=== PATIENT | male | born 1975 | race Caucasian/White ===

== ENCOUNTER 2016-11-26 14:26 | Emergency (ER) | payer OTHER ==
[~2016-11-26] VITALS: Ht 177.8 cm; Wt 85.0 kg
[~2016-11-26 14:26] MED LIST: ADVAIR HFA120 INHALA IH; ALPRAZOLAM0.5 MG PO; ALPRAZOLAM1 MG PO; ALPRAZOLAM2 MG PO; AMBIEN5 MG PO; AMOXICILLIN875 MG PO; ATARAX,VISTARIL25 MG PO; ATARAX,VISTARIL50 MG PO; BENZONATATE100 MG PO; BLOOD THINNER; BUSPAR10 MG PO; BUSPAR15 MG PO; BUSPAR5 MG PO; CEFTIN500 MG PO; CLONAZEPAM0.5 MG PO; CLONAZEPAM1 MG PO; COUMADIN4 MG PO; COUMADIN5 MG PO; COUMADIN7.5 MG PO; DEPAKOTE500 MG PO; DIVALPROEX SOD500 M1 PO; DIVALPROEX SOD500 MG PO; DOXYCYCLINE HY100 MG PO; ELIQUIS5 MG PO; ENDOCET 5-3251 EACH PO; FLEXERIL10 MG PO; FLONASE16 G1 BOTH NARES; GABAPENTIN100 MG PO; GABAPENTIN400 MG PO; GEMFIBROZIL600 MG PO; GRALISE300 MG PO; HYDROXYZINE PAM25 MG PO; KEPPRA1000 MG PO; KEPPRA500 MG PO; LEVETIRACETAM500 MG PO; LEVOFLOXACIN500 MG PO; LIBRIUM25 MG PO; LIDODERM 5% P1 PATCH TD; LORTAB 5-325 M1 EACH PO; MEDROL DOSEPAK4 MG PO; MOBIC7.5 MG PO; MOTRIN400 MG PO; MOTRIN800 MG PO; MUCUS ER600 MG PO; NAPROSYN375 MG PO; NAPROSYN500 MG PO; NEURONTIN100 MG PO; NORCO 10/3251 TABLET PO; NORCO 5/3251 TABLET PO; OXCARBAZEPINE300 MG PO; PERCOCET 5/31 TABLET PO; PERCOCET 7.51 TABLET PO; PREDNISONE10 MG PO; PREDNISONE20 MG PO; PREDNISONE50 MG PO; PROAIR HFA8.5 GM IH; QUETIAPINE FUM100 MG PO; QUETIAPINE FUM200 MG PO; RISPERIDONE1 MG PO; ROXICET 5-325500 ML PO; SAPHRIS5 MG; SAPHRIS5 MG SL; SEROQUEL100 MG PO; SEROQUEL50 MG PO; SERTRALINE HCL100 MG PO; TESSALON200 MG PO; TRAMADOL HCL E100 M1 PO; TRAMADOL HCL50 MG PO; TRAZODONE HCL50 MG PO; TYLENOL WITH C1 EACH PO; ULTRAM50 MG PO; VALIUM5 MG PO; VENTOLIN HFA18 GM IH; WARFARIN SODIU7.5 MG PO; XANAX2 MG PO; XARELTO20 MG PO; ZITHROMAX Z-PA250 MG PO; ZOFRAN4 MG PO; ZOLOFT100 MG PO; ZOLOFT50 MG PO; ZOLPIDEM TARTRAT5 MG PO
[2016-11-26 16:02] LABS: HEMATOCRIT 44.3 % (38.0-50.0); MCH 32.9 PG (29.0-34.0); MCV 94.1 FL (86-99); MEAN PLAT.VOLUME 9.5 uM^3 (9.0-12.4); PLATELET COUNT 178 K/uL (156-360); RBC DIS.WIDTH-CV 13.7 % (11.8-14.6); RBC DIS.WIDTH-SD 45.2 % (39-53); RED BLOOD COUNT 4.71 M/uL (4.00-5.50); WHITE BLOOD COUNT 6.7 K/uL (4.1-10.2)
[2016-11-26 16:16] LABS: CHLORIDE 108 mEq/L (99-109); POTASSIUM 4.3 mEq/L (3.7-5.4); SODIUM 143 mEq/L (136-147)
[2016-11-26 16:18] LABS: GLUCOSE 101 mg/dL (70-99)
[2016-11-26 16:19] LABS: ANION GAP 11 MEQ/L (2-14)
[2016-11-26 16:21] LABS: SERUM ETHYL ALCOHOL < 10 mg/dL
[2016-11-26 16:22] LABS: GFR ESTIMATE (CALCULATED) > 59 mL/min/
[2016-11-26 16:23] LABS: UREA NITROGEN (BUN) 14 mg/dL (9-23)
[2016-11-26 16:25] LABS: CREATINE KINASE 728 IU/L (1-294)
[2016-11-26 17:14] LABS: ADD MIUA? NO; BILIRUBIN NEGATIVE; BLOOD NEGATIVE; COLOR YELLOW ((YELLOW)); GLUCOSE (STRIP) NEGATIVE; KETONES NEGATIVE; LEUKOCYTES NEGATIVE; NITRITE NEGATIVE; PH, URINE 5.5 (5-8); PROTEIN (STRIP) TRACE; SPECIFIC GRAVITY 1.029 (1.000-1.030); UCUL ADDED? NO; UROBILINOGEN 0.2 MG/DL (0.2-1.0)
[2016-11-26 19:18] VITALS: BP 124/73
[2016-12-18] MEDS ORDERED: PREDNISONE20 MG PO (04:14)
[2016-12-18] MEDS ORDERED: PROVENTIL HFA6.7 GM IH (04:14)
== END 2016-11-26 19:28 | disposition home or self-care (01) ==
LOC: EME → EDBD 14:26 → EME 19:28
PROVIDERS: Emergency Medicine
DX: Z04.6 Encounter for general psychiatric examination, requested by authority (principal); F41.1 Generalized anxiety disorder; M62.82 Rhabdomyolysis; R73.9 Hyperglycemia, unspecified; F31.32 Bipolar disorder, current episode depressed, moderate; F60.2 Antisocial personality disorder; F10.20 Alcohol dependence, uncomplicated; Z91.14 Patient's other noncompliance with medication regimen; F17.200 Nicotine dependence, unspecified, uncomplicated; I10 Essential (primary) hypertension; Z95.1 Presence of aortocoronary bypass graft; Z88.2 Allergy status to sulfonamides; Z88.6 Allergy status to analgesic agent
CPT/HCPCS: 80048; 80164; 81003; 82550; 85027; 90837; 99281; 99285; G0480

== ENCOUNTER 2016-11-27 04:51 | Emergency (ER) | payer OTHER ==
[~2016-11-27] VITALS: Ht 177.8 cm; Wt 90.2 kg
[2016-11-27 05:25] LABS: CHLORIDE 108 mEq/L (99-109); SODIUM 142 mEq/L (136-147)
[2016-11-27 05:27] LABS: GLUCOSE 122 mg/dL (70-99)
[2016-11-27 05:28] LABS: ANION GAP 12 MEQ/L (2-14)
[2016-11-27 05:29] LABS: EOSINOPHIL (%) 3.1 % (0-5); EOSINOPHIL COUNT 0.2 K/uL (0-0.3); HEMATOCRIT 43.3 % (38.0-50.0); IMMATURE GRANULOCYTE (%) 0.2 % (0.0-0.7); IMMATURE GRANULOCYTE COUNT 0.1 K/uL; LYMPHOCYTE COUNT 2.6 K/uL (1.0-2.8); MCH 33.5 PG (29.0-34.0); MCHC 35.8 G/DL (30.0-36.0); MCV 93.5 FL (86-99); MEAN PLAT.VOLUME 9.2 uM^3 (9.0-12.4); MONOCYTE (%) 8.5 % (3-12); MONOCYTE COUNT 0.6 K/uL (0-0.8); NEUTROPHIL (%) 47.9 % (45-76); NEUTROPHIL COUNT 3.1 K/uL (1.8-6.4); PLATELET COUNT 183 K/uL (156-360); RBC DIS.WIDTH-CV 13.7 % (11.8-14.6); RBC DIS.WIDTH-SD 45.4 % (39-53); RED BLOOD COUNT 4.63 M/uL (4.00-5.50); WHITE BLOOD COUNT 6.5 K/uL (4.1-10.2)
[2016-11-27 05:30] LABS: SERUM ETHYL ALCOHOL 139 mg/dL
[2016-11-27 05:31] LABS: GFR ESTIMATE (CALCULATED) > 59 mL/min/
[2016-11-27 05:33] LABS: UREA NITROGEN (BUN) 13 mg/dL (9-23)
[2016-11-27 05:34] LABS: SALICYLATE < 5.0 MG/DL (15-30)
[2016-11-27 05:35] LABS: POTASSIUM 3.4 mEq/L (3.7-5.4)
[2016-11-27 15:24] VITALS: BP 115/88
[2016-12-18] MEDS ORDERED: PREDNISONE20 MG PO (04:14)
[2016-12-18] MEDS ORDERED: PROVENTIL HFA6.7 GM IH (04:14)
[2016-12-21] MEDS ORDERED: XARELTO15 MG PO (06:58)
== END 2016-11-27 15:25 | disposition home or self-care (01) ==
LOC: EME → EDBD 04:51 → EME 15:25
PROVIDERS: Emergency Medicine
DX: F31.32 Bipolar disorder, current episode depressed, moderate (principal); F60.2 Antisocial personality disorder; J44.9 Chronic obstructive pulmonary disease, unspecified; I10 Essential (primary) hypertension; Z86.711 Personal history of pulmonary embolism; Z86.718 Personal history of other venous thrombosis and embolism; D68.2 Hereditary deficiency of other clotting factors; F17.200 Nicotine dependence, unspecified, uncomplicated; Z95.1 Presence of aortocoronary bypass graft
CPT/HCPCS: 80048; 81003; 85025; 90837; 93005; 99281; 99285; G0480; J2060

== ENCOUNTER 2016-11-27 19:28 | Emergency (ER) | payer OTHER ==
[~2016-11-27] VITALS: Ht 177.8 cm; Wt 90.2 kg
[2016-11-27 23:29] LABS: ADD MIUA? NO; BILIRUBIN NEGATIVE; BLOOD NEGATIVE; COLOR YELLOW ((YELLOW)); GLUCOSE (STRIP) NEGATIVE; KETONES NEGATIVE; LEUKOCYTES NEGATIVE; NITRITE NEGATIVE; PROTEIN (STRIP) NEGATIVE; SPECIFIC GRAVITY 1.022 (1.000-1.030); UCUL ADDED? NO; UROBILINOGEN 0.2 MG/DL (0.2-1.0)
[2016-11-27 23:54] LABS: AMPHETAMINE NEGATIVE (500 ng/mL); BARBITURATES NEGATIVE (200 ng/mL); BENZODIAZEPINES PRESUMPTIVE POSITIVE (150 ng/mL); COCAINE PRESUMPTIVE POSITIVE (150 ng/mL); INTERNAL CONTROLS VALID? YES; METHADONE PRESUMPTIVE POSITIVE (200 ng/mL); METHAMPHETAMINE NEGATIVE (500 ng/mL); OPIATES (MORPHINE) NEGATIVE (100 ng/mL); OXYCODONE NEGATIVE (100 ng/mL); PHENCYCLIDINE NEGATIVE (25 ng/mL); PROPOXYPHENE NEGATIVE (300 ng/mL); THC CANNABINOIDS NEGATIVE (50 ng/mL); TRICYCLIC ANTIDEPRESSANTS NEGATIVE (300 ng/mL)
[2016-11-27 23:55] LABS: ADD MEDTOX COMMENT Y
[2016-11-28 02:26] LABS: BENZODIAZEPINES, URINE SCREEN POSITIVE (200 ng/mL)
[2016-11-28 11:07] VITALS: BP 124/70
[2016-12-18] MEDS ORDERED: PROVENTIL HFA6.7 GM IH (04:14)
[2016-12-18] MEDS ORDERED: PREDNISONE20 MG PO (04:14)
== END 2016-11-28 11:09 | disposition home or self-care (01) ==
LOC: EME 19:28
PROVIDERS: Emergency Medicine
DX: F41.9 Anxiety disorder, unspecified (principal); R45.851 Suicidal ideations; F60.2 Antisocial personality disorder; F31.4 Bipolar disorder, current episode depressed, severe, without psychotic features; Z59.0 Homelessness; F17.200 Nicotine dependence, unspecified, uncomplicated; Z71.6 Tobacco abuse counseling; F19.10 Other psychoactive substance abuse, uncomplicated
CPT/HCPCS: 81003; 84999; 90837; 99281; 99285; G0480; J1200; J1630

== ENCOUNTER 2016-11-30 14:02 | Emergency (ER) | payer OTHER ==
[~2016-11-30] VITALS: Ht 177.8 cm; Wt 95.2 kg
[2016-11-30 14:45] LABS: HEMATOCRIT 46.9 % (38.0-50.0); MCH 32.7 PG (29.0-34.0); MCHC 34.8 G/DL (30.0-36.0); MCV 94.2 FL (86-99); MEAN PLAT.VOLUME 9.5 uM^3 (9.0-12.4); PLATELET COUNT 223 K/uL (156-360); RBC DIS.WIDTH-CV 13.5 % (11.8-14.6); RBC DIS.WIDTH-SD 44.4 % (39-53); RED BLOOD COUNT 4.98 M/uL (4.00-5.50); WHITE BLOOD COUNT 7.5 K/uL (4.1-10.2)
[2016-11-30 14:52] LABS: CHLORIDE 105 mEq/L (99-109); SODIUM 140 mEq/L (136-147)
[2016-11-30 14:53] LABS: POTASSIUM 4.4 mEq/L (3.7-5.4)
[2016-11-30 14:54] LABS: GLUCOSE 96 mg/dL (70-99)
[2016-11-30 14:56] LABS: ANION GAP 8 MEQ/L (2-14); INTER. NORMALIZED RATIO 1.1; PTT 32.2 (25-32)
[2016-11-30 14:57] LABS: SERUM ETHYL ALCOHOL < 10 mg/dL
[2016-11-30 14:58] LABS: GFR ESTIMATE (CALCULATED) > 59 mL/min/
[2016-11-30 14:59] LABS: UREA NITROGEN (BUN) 17 mg/dL (9-23)
[2016-11-30 15:04] LABS: TROP-I INTERPRETATION NEGATIVE; TROPONIN-I < 0.01 ng/mL (0.0-0.30)
[2016-11-30 15:46] LABS: AMPHETAMINE NEGATIVE (500 ng/mL); BARBITURATES NEGATIVE (200 ng/mL); BENZODIAZEPINES PRESUMPTIVE POSITIVE (150 ng/mL); COCAINE NEGATIVE (150 ng/mL); INTERNAL CONTROLS VALID? YES; METHADONE PRESUMPTIVE POSITIVE (200 ng/mL); METHAMPHETAMINE NEGATIVE (500 ng/mL); OPIATES (MORPHINE) NEGATIVE (100 ng/mL); OXYCODONE NEGATIVE (100 ng/mL); PHENCYCLIDINE NEGATIVE (25 ng/mL); PROPOXYPHENE NEGATIVE (300 ng/mL); THC CANNABINOIDS NEGATIVE (50 ng/mL); TRICYCLIC ANTIDEPRESSANTS NEGATIVE (300 ng/mL)
[2016-11-30 15:47] LABS: ADD MEDTOX COMMENT Y
[2016-11-30 16:15] LABS: BENZODIAZEPINES, URINE SCREEN POSITIVE (200 ng/mL)
[2016-11-30] MEDS ORDERED: XARELTO20 MG PO (17:20)
[2016-11-30] MEDS ORDERED: XARELTO15 MG PO (17:20)
[2016-11-30 17:28] VITALS: BP 140/96
[2016-12-18] MEDS ORDERED: PREDNISONE20 MG PO (04:14)
[2016-12-18] MEDS ORDERED: PROVENTIL HFA6.7 GM IH (04:14)
== END 2016-11-30 17:37 | disposition home or self-care (01) ==
LOC: EME → EDBD 14:02 → EME 17:37
PROVIDERS: Emergency Medicine
DX: R07.89 Other chest pain (principal); I26.99 Other pulmonary embolism without acute cor pulmonale; F33.9 Major depressive disorder, recurrent, unspecified; J45.909 Unspecified asthma, uncomplicated; J43.9 Emphysema, unspecified; J44.9 Chronic obstructive pulmonary disease, unspecified; I10 Essential (primary) hypertension; F17.200 Nicotine dependence, unspecified, uncomplicated; Z88.6 Allergy status to analgesic agent; Z88.8 Allergy status to other drugs, medicaments and biological substances
CPT/HCPCS: 71275; 80048; 84484; 84999; 85027; 85610; 85730; 90839; 93005; 99281; 99285; G0480

== ENCOUNTER 2016-12-02 14:32 | Emergency (ER) | payer OTHER ==
[~2016-12-02] VITALS: Ht 177.8 cm; Wt 99.9 kg
[~2016-12-02 14:32] MED LIST changes: +XARELTO15 MG PO
[2016-12-02 15:29] LABS: HEMATOCRIT 44.8 % (38.0-50.0); MCH 33.2 PG (29.0-34.0); MCHC 35.5 G/DL (30.0-36.0); MCV 93.5 FL (86-99); MEAN PLAT.VOLUME 9.3 uM^3 (9.0-12.4); PLATELET COUNT 246 K/uL (156-360); RBC DIS.WIDTH-CV 13.3 % (11.8-14.6); RED BLOOD COUNT 4.79 M/uL (4.00-5.50); WHITE BLOOD COUNT 7.9 K/uL (4.1-10.2)
[2016-12-02 15:39] LABS: CHLORIDE 107 mEq/L (99-109); SODIUM 140 mEq/L (136-147)
[2016-12-02 15:41] LABS: GLUCOSE 99 mg/dL (70-99)
[2016-12-02 15:42] LABS: ANION GAP 12 MEQ/L (2-14)
[2016-12-02 15:43] LABS: TOTAL BILIRUBIN 0.3 mg/dL (0.0-1.0)
[2016-12-02 15:44] LABS: ALKALINE PHOSPHATASE 107 IU/L (3-129); SERUM ETHYL ALCOHOL < 10 mg/dL
[2016-12-02 15:45] LABS: GFR ESTIMATE (CALCULATED) > 59 mL/min/
[2016-12-02 15:46] LABS: UREA NITROGEN (BUN) 21 mg/dL (9-23)
[2016-12-02 15:48] LABS: ADD MIUA? NO; BILIRUBIN NEGATIVE; BLOOD NEGATIVE; COLOR YELLOW ((YELLOW)); GLUCOSE (STRIP) NEGATIVE; KETONES NEGATIVE; LEUKOCYTES NEGATIVE; NITRITE NEGATIVE; PROTEIN (STRIP) NEGATIVE; SPECIFIC GRAVITY 1.026 (1.000-1.030); UCUL ADDED? NO
[2016-12-02 15:57] LABS: COCAINE NEGATIVE (150 ng/mL); METHAMPHETAMINE NEGATIVE (500 ng/mL); OPIATES (MORPHINE) NEGATIVE (100 ng/mL); PHENCYCLIDINE NEGATIVE (25 ng/mL); THC CANNABINOIDS NEGATIVE (50 ng/mL)
[2016-12-02 15:58] LABS: ADD MEDTOX COMMENT Y; AMPHETAMINE NEGATIVE (500 ng/mL); BARBITURATES NEGATIVE (200 ng/mL); BENZODIAZEPINES PRESUMPTIVE POSITIVE (150 ng/mL); INTERNAL CONTROLS VALID? YES; METHADONE NEGATIVE (200 ng/mL); OXYCODONE NEGATIVE (100 ng/mL); PROPOXYPHENE NEGATIVE (300 ng/mL); TRICYCLIC ANTIDEPRESSANTS NEGATIVE (300 ng/mL)
[2016-12-02 16:18] LABS: BENZODIAZEPINES QUANT VALUE 0 NG/ML
[2016-12-02 16:20] LABS: BENZODIAZEPINES, URINE SCREEN Negative (200 ng/mL)
[2016-12-02 16:49] VITALS: BP 116/91
[2016-12-18] MEDS ORDERED: PROVENTIL HFA6.7 GM IH (04:14)
[2016-12-18] MEDS ORDERED: PREDNISONE20 MG PO (04:14)
== END 2016-12-02 17:16 | disposition home or self-care (01) ==
LOC: EME 14:32
PROVIDERS: Emergency Medicine
DX: F32.9 Major depressive disorder, single episode, unspecified (principal); J45.909 Unspecified asthma, uncomplicated; J44.9 Chronic obstructive pulmonary disease, unspecified; I10 Essential (primary) hypertension; Z86.711 Personal history of pulmonary embolism; Z86.718 Personal history of other venous thrombosis and embolism; D68.2 Hereditary deficiency of other clotting factors; F17.200 Nicotine dependence, unspecified, uncomplicated
CPT/HCPCS: 80053; 81003; 84999; 85027; 90837; 99281; 99285; G0480

== ENCOUNTER 2016-12-03 01:26 | Emergency (ER) | payer OTHER ==
[~2016-12-03] VITALS: Ht 177.8 cm; Wt 86.2 kg
[2016-12-03 04:10] LABS: HEMATOCRIT 46.1 % (38.0-50.0); MCH 32.9 PG (29.0-34.0); MCHC 34.9 G/DL (30.0-36.0); MCV 94.3 FL (86-99); MEAN PLAT.VOLUME 9.4 uM^3 (9.0-12.4); PLATELET COUNT 234 K/uL (156-360); RBC DIS.WIDTH-CV 13.5 % (11.8-14.6); RBC DIS.WIDTH-SD 44.8 % (39-53); RED BLOOD COUNT 4.89 M/uL (4.00-5.50); WHITE BLOOD COUNT 7.6 K/uL (4.1-10.2)
[2016-12-03 04:22] LABS: CHLORIDE 108 mEq/L (99-109); POTASSIUM 4.1 mEq/L (3.7-5.4); SODIUM 140 mEq/L (136-147)
[2016-12-03 04:23] LABS: GLUCOSE 95 mg/dL (70-99)
[2016-12-03 04:25] LABS: ANION GAP 9 MEQ/L (2-14)
[2016-12-03 04:27] LABS: GFR ESTIMATE (CALCULATED) > 59 mL/min/; SERUM ETHYL ALCOHOL < 10 mg/dL
[2016-12-03 04:28] LABS: UREA NITROGEN (BUN) 21 mg/dL (9-23)
[2016-12-03 04:29] LABS: ADD MIUA? NO; BILIRUBIN NEGATIVE; BLOOD NEGATIVE; COLOR YELLOW ((YELLOW)); GLUCOSE (STRIP) NEGATIVE; KETONES NEGATIVE; LEUKOCYTES NEGATIVE; NITRITE NEGATIVE; PROTEIN (STRIP) NEGATIVE; SPECIFIC GRAVITY 1.028 (1.000-1.030); UCUL ADDED? NO; UROBILINOGEN 0.2 MG/DL (0.2-1.0)
[2016-12-03 04:38] LABS: ADD MEDTOX COMMENT Y; AMPHETAMINE NEGATIVE (500 ng/mL); BARBITURATES NEGATIVE (200 ng/mL); BENZODIAZEPINES PRESUMPTIVE POSITIVE (150 ng/mL); COCAINE NEGATIVE (150 ng/mL); INTERNAL CONTROLS VALID? YES; METHADONE NEGATIVE (200 ng/mL); METHAMPHETAMINE NEGATIVE (500 ng/mL); OPIATES (MORPHINE) NEGATIVE (100 ng/mL); OXYCODONE NEGATIVE (100 ng/mL); PHENCYCLIDINE NEGATIVE (25 ng/mL); PROPOXYPHENE NEGATIVE (300 ng/mL); THC CANNABINOIDS NEGATIVE (50 ng/mL); TRICYCLIC ANTIDEPRESSANTS NEGATIVE (300 ng/mL)
[2016-12-03 05:28] LABS: BENZODIAZEPINES QUANT VALUE 0 NG/ML
[2016-12-03 05:31] LABS: BENZODIAZEPINES, URINE SCREEN Negative (200 ng/mL)
[2016-12-03 13:12] VITALS: BP 126/80
[2016-12-18] MEDS ORDERED: PREDNISONE20 MG PO (04:14)
[2016-12-18] MEDS ORDERED: PROVENTIL HFA6.7 GM IH (04:14)
== END 2016-12-03 13:13 | disposition home or self-care (01) ==
LOC: EME 01:26
PROVIDERS: Emergency Medicine
DX: F20.9 Schizophrenia, unspecified (principal); R45.850 Homicidal ideations; J45.909 Unspecified asthma, uncomplicated; J44.9 Chronic obstructive pulmonary disease, unspecified; I10 Essential (primary) hypertension; Z86.711 Personal history of pulmonary embolism; Z86.718 Personal history of other venous thrombosis and embolism; D68.2 Hereditary deficiency of other clotting factors; F17.200 Nicotine dependence, unspecified, uncomplicated
CPT/HCPCS: 71010; 80048; 81003; 84999; 85027; 90837; 99281; 99285; G0480

== ENCOUNTER 2016-12-03 16:27 | Emergency (ER) | payer OTHER ==
[~2016-12-03] VITALS: Ht 165.1 cm; Wt 100.0 kg
[2016-12-03 17:28] VITALS: BP 118/87
[2016-12-18] MEDS ORDERED: PROVENTIL HFA6.7 GM IH (04:14)
[2016-12-18] MEDS ORDERED: PREDNISONE20 MG PO (04:14)
== END 2016-12-03 17:29 | disposition home or self-care (01) ==
LOC: EME 16:27
DX: F41.9 Anxiety disorder, unspecified (principal); F60.2 Antisocial personality disorder; J45.909 Unspecified asthma, uncomplicated; J44.9 Chronic obstructive pulmonary disease, unspecified; I10 Essential (primary) hypertension; D68.2 Hereditary deficiency of other clotting factors; Z86.711 Personal history of pulmonary embolism; Z86.718 Personal history of other venous thrombosis and embolism; F17.200 Nicotine dependence, unspecified, uncomplicated
CPT/HCPCS: 90837; 99281; 99284

== ENCOUNTER 2017-02-27 12:49 | Inpatient (IN) | payer OTHER ==
[~2017-02-27] VITALS: Ht 177.8 cm; Wt 92.5 kg
[~2017-02-27 12:49] MED LIST changes: +PROVENTIL HFA6.7 GM IH
[2017-02-27 16:45] LABS: HEMATOCRIT 44.7 % (38.0-50.0); MCH 32.7 PG (29.0-34.0); MCV 96.1 FL (86-99); MEAN PLAT.VOLUME 9.2 uM^3 (9.0-12.4); PLATELET COUNT 180 K/uL (156-360); RBC DIS.WIDTH-CV 13.6 % (11.8-14.6); RBC DIS.WIDTH-SD 48.6 % (39-53); RED BLOOD COUNT 4.65 M/uL (4.00-5.50); WHITE BLOOD COUNT 5.4 K/uL (4.1-10.2)
[2017-02-27 16:56] LABS: CHLORIDE 106 mEq/L (99-109); POTASSIUM 4.1 mEq/L (3.7-5.4); SODIUM 140 mEq/L (136-147)
[2017-02-27 16:58] LABS: GLUCOSE 94 mg/dL (70-99)
[2017-02-27 16:59] LABS: ANION GAP 8 MEQ/L (2-14)
[2017-02-27 17:01] LABS: SERUM ETHYL ALCOHOL < 10 mg/dL
[2017-02-27 17:02] LABS: GFR ESTIMATE (CALCULATED) > 59 mL/min/
[2017-02-27 17:04] LABS: UREA NITROGEN (BUN) 16 mg/dL (9-23)
[2017-02-27 17:05] LABS: SALICYLATE < 5.0 MG/DL (15-30)
[2017-02-27 20:05] LABS: ADD MIUA? NO; BILIRUBIN NEGATIVE; BLOOD NEGATIVE; COLOR YELLOW ((YELLOW)); GLUCOSE (STRIP) NEGATIVE; KETONES NEGATIVE; LEUKOCYTES NEGATIVE; NITRITE NEGATIVE; PROTEIN (STRIP) NEGATIVE; UROBILINOGEN 0.2 MG/DL (0.2-1.0)
[2017-02-27 20:10] VITALS: BP 132/87
[2017-02-27 20:33] LABS: AMPHETAMINE NEGATIVE (500 ng/mL); BARBITURATES NEGATIVE (200 ng/mL); BENZODIAZEPINES NEGATIVE (150 ng/mL); COCAINE PRESUMPTIVE POSITIVE (150 ng/mL); INTERNAL CONTROLS VALID? YES; METHADONE NEGATIVE (200 ng/mL); METHAMPHETAMINE NEGATIVE (500 ng/mL); OPIATES (MORPHINE) NEGATIVE (100 ng/mL); OXYCODONE NEGATIVE (100 ng/mL); PHENCYCLIDINE NEGATIVE (25 ng/mL); PROPOXYPHENE NEGATIVE (300 ng/mL); THC CANNABINOIDS PRESUMPTIVE POSITIVE (50 ng/mL); TRICYCLIC ANTIDEPRESSANTS NEGATIVE (300 ng/mL)
[2017-02-27 20:34] LABS: ADD MEDTOX COMMENT Y
[2017-02-28 07:44] VITALS: BP 122/86
== END 2017-02-28 10:39 | disposition home or self-care (01) | DRG 951 ==
LOC: EME 12:49 → EDOF 18:01 → 1WEST 18:01
PROVIDERS: Physician Assistant
DX: Z76.5 Malingerer [conscious simulation] (principal); F12.10 Cannabis abuse, uncomplicated; F14.10 Cocaine abuse, uncomplicated; F60.2 Antisocial personality disorder; D68.2 Hereditary deficiency of other clotting factors; M25.562 Pain in left knee; I10 Essential (primary) hypertension; J45.909 Unspecified asthma, uncomplicated; Z88.2 Allergy status to sulfonamides; Z59.0 Homelessness
CPT/HCPCS: 73564; 80048; 81003; 84999; 85027; 90839; 97166 GO; 99202; 99281; 99285; G0480

== ENCOUNTER 2017-04-02 17:55 | Observation (INO) | payer OTHER ==
[~2017-04-02] VITALS: Ht 177.8 cm; Wt 97.1 kg
[2017-04-02 18:58] LABS: HEMATOCRIT 41.9 % (38.0-50.0); MCHC 34.4 G/DL (30.0-36.0); MCV 96.1 FL (86-99); MEAN PLAT.VOLUME 9.2 uM^3 (9.0-12.4); PLATELET COUNT 166 K/uL (156-360); RBC DIS.WIDTH-CV 13.9 % (11.8-14.6); RBC DIS.WIDTH-SD 49.1 % (39-53); RED BLOOD COUNT 4.36 M/uL (4.00-5.50); WHITE BLOOD COUNT 7.8 K/uL (4.1-10.2)
[2017-04-02 19:08] LABS: CHLORIDE 106 mEq/L (99-109); POTASSIUM 4.1 mEq/L (3.7-5.4); SODIUM 140 mEq/L (136-147)
[2017-04-02 19:10] LABS: GLUCOSE 114 mg/dL (70-99)
[2017-04-02 19:11] LABS: ANION GAP 11 MEQ/L (2-14)
[2017-04-02 19:14] LABS: GFR ESTIMATE (CALCULATED) > 59 mL/min/
[2017-04-02 19:15] LABS: UREA NITROGEN (BUN) 16 mg/dL (9-23)
[2017-04-02 19:19] LABS: TROP-I INTERPRETATION NEGATIVE; TROPONIN-I 0.01 ng/mL (0.0-0.30)
[2017-04-02] MEDS ORDERED: LATUDA60 MG PO (22:17)
[2017-04-02] MEDS ORDERED: BACLOFEN10 MG PO (22:17)
[2017-04-02] MEDS ORDERED: XARELTO20 MG PO (22:17)
[2017-04-02] MEDS ORDERED: LEXAPRO10 MG PO (22:17)
[2017-04-02] MEDS ORDERED: DOXEPIN HCL25 MG PO (22:17)
[2017-04-02 22:37] LABS: PROTHROMBIN TIME 10.1 (9.2-11.2); PTT 26.4 (25-32)
[2017-04-03 00:05] VITALS: BP 122/78
[2017-04-03 01:23] LABS: TROP-I INTERPRETATION NEGATIVE; TROPONIN-I < 0.01 ng/mL (0.0-0.30)
[2017-04-03 03:40] VITALS: BP 120/72
[2017-04-03 05:40] LABS: HEMATOCRIT 39.3 % (38.0-50.0); MCH 33.7 PG (29.0-34.0); MCHC 34.1 G/DL (30.0-36.0); MCV 98.7 FL (86-99); MEAN PLAT.VOLUME 9.6 uM^3 (9.0-12.4); PLATELET COUNT 155 K/uL (156-360); RBC DIS.WIDTH-CV 14.1 % (11.8-14.6); RBC DIS.WIDTH-SD 51.1 % (39-53); RED BLOOD COUNT 3.98 M/uL (4.00-5.50); WHITE BLOOD COUNT 7.5 K/uL (4.1-10.2)
[2017-04-03 05:51] LABS: ANION GAP 10 MEQ/L (2-14); CHLORIDE 103 MEQ/L (99-109); GFR ESTIMATE (CALCULATED) > 59 mL/min/; GLUCOSE 115 mg/dL (70-99); POTASSIUM 4.2 MEQ/L (3.7-5.4); SAMPLE HEMOLYSIS CHECK 0; SAMPLE ICTERIC CHECK 0; SAMPLE LIPEMIA CHECK 0; SODIUM 138 MEQ/L (136-147); UREA NITROGEN (BUN) 17 mg/dL (9-23)
[2017-04-03 07:45] VITALS: BP 108/74
[2017-04-03 07:46] LABS: TROP-I INTERPRETATION NEGATIVE; TROPONIN-I < 0.01 ng/mL (0.0-0.30)
[2017-04-03 11:49] LABS: TROP-I INTERPRETATION NEGATIVE; TROPONIN-I < 0.01 ng/mL (0.0-0.30)
[2017-04-03 12:00] VITALS: BP 105/52
[2017-04-03 17:46] LABS: AMPHETAMINES QUANT VALUE 0 NG/ML; BARBITUATES QUANT VALUE 0 NG/ML; BENZODIAZEPINES, URINE SCREEN POSITIVE (200 ng/mL); PHENCYCLIDINE QUANT VALUE 0 NG/ML
[2017-04-03 17:54] VITALS: BP 111/57
[2017-04-03 19:10] VITALS: BP 117/72
[2017-04-04 03:00] VITALS: BP 112/80
[2017-04-04 06:59] LABS: ANION GAP 7 MEQ/L (2-14); CHLORIDE 104 MEQ/L (99-109); GFR ESTIMATE (CALCULATED) > 59 mL/min/; GLUCOSE 94 mg/dL (70-99); POTASSIUM 4.5 MEQ/L (3.7-5.4); SAMPLE HEMOLYSIS CHECK 0; SAMPLE ICTERIC CHECK 0; SAMPLE LIPEMIA CHECK 0; SODIUM 137 MEQ/L (136-147); UREA NITROGEN (BUN) 17 mg/dL (9-23)
[2017-04-04 07:03] LABS: EOSINOPHIL (%) 3.3 % (0-5); EOSINOPHIL COUNT 0.2 K/uL (0-0.3); HEMATOCRIT 40.3 % (38.0-50.0); IMMATURE GRANULOCYTE (%) 0.2 % (0.0-0.7); INSTRUMENT ABS NEUTROPHIL CT 2.9 K/uL; LYMPHOCYTE COUNT 1.4 K/uL (1.0-2.8); MCH 34.1 PG (29.0-34.0); MCV 97.6 FL (86-99); MEAN PLAT.VOLUME 9.3 uM^3 (9.0-12.4); MONOCYTE (%) 7.8 % (3-12); MONOCYTE COUNT 0.4 K/uL (0-0.8); NEUTROPHIL (%) 60.5 % (45-76); NEUTROPHIL COUNT 2.9 K/uL (1.8-6.4); PLATELET COUNT 157 K/uL (156-360); RBC DIS.WIDTH-SD 49.3 % (39-53); RED BLOOD COUNT 4.13 M/uL (4.00-5.50)
[2017-04-04 07:04] LABS: WHITE BLOOD COUNT 4.9 K/uL (4.1-10.2)
[2017-04-04 08:48] VITALS: BP 116/78
[2017-04-04 12:32] VITALS: BP 114/74
[2017-04-04] MEDS ORDERED: XARELTO15 MG PO (13:03)
[2017-04-04] MEDS ORDERED: THERAGRAN1 TABLET PO (13:04)
[2017-04-04] MEDS ORDERED: FOLIC ACID1 MG PO (13:04)
[2017-04-04] MEDS ORDERED: PRILOSEC OTC20 MG PO (13:05)
[2017-04-04] MEDS ORDERED: Thiamine,Vitamin B1 PO (13:10)
== END 2017-04-04 15:03 | disposition home or self-care (01) ==
LOC: EME → EDBD 17:55 → EME 17:55 → 4EAST 23:07 → EDOF 23:07 → 4EAST 04-03
PROVIDERS: Emergency Medicine; Hospitalist; Internal Medicine
DX: I82.442 Acute embolism and thrombosis of left tibial vein (principal); I82.542 Chronic embolism and thrombosis of left tibial vein; Z79.01 Long term (current) use of anticoagulants; R07.9 Chest pain, unspecified; R45.851 Suicidal ideations; F20.9 Schizophrenia, unspecified; F31.9 Bipolar disorder, unspecified; F60.2 Antisocial personality disorder; D68.2 Hereditary deficiency of other clotting factors; G40.909 Epilepsy, unspecified, not intractable, without status epilepticus; F14.10 Cocaine abuse, uncomplicated; F10.10 Alcohol abuse, uncomplicated; F17.200 Nicotine dependence, unspecified, uncomplicated; Z86.711 Personal history of pulmonary embolism; Z86.718 Personal history of other venous thrombosis and embolism; Z91.14 Patient's other noncompliance with medication regimen; Z59.0 Homelessness; F12.90 Cannabis use, unspecified, uncomplicated; F11.20 Opioid dependence, uncomplicated; Z76.5 Malingerer [conscious simulation]
CPT/HCPCS: 71020; 71275; 80048; 80306 90; 83735; 84484; 85025; 85027; 85610; 85730; 93005; 93970; 99281; 99285; G0378; J1170; J1885; J2270; J2405

== ENCOUNTER 2017-04-06 12:59 | Emergency (ER) | payer OTHER ==
[~2017-04-06] VITALS: Ht 177.8 cm; Wt 97.0 kg
[~2017-04-06 12:59] MED LIST changes: +BACLOFEN10 MG PO; +DOXEPIN HCL25 MG PO; +FOLIC ACID1 MG PO; +LATUDA60 MG PO; +LEXAPRO10 MG PO; +PRILOSEC OTC20 MG PO; +THERAGRAN1 TABLET PO; +Thiamine,Vitamin B1 PO
[2017-04-06 14:35] LABS: HEMATOCRIT 41.9 % (38.0-50.0); MCH 32.6 PG (29.0-34.0); MCHC 33.7 G/DL (30.0-36.0); MCV 96.8 FL (86-99); PLATELET COUNT 185 K/uL (156-360); RBC DIS.WIDTH-SD 49.8 % (39-53); RED BLOOD COUNT 4.33 M/uL (4.00-5.50); WHITE BLOOD COUNT 5.9 K/uL (4.1-10.2)
[2017-04-06 14:44] LABS: PROTHROMBIN TIME 10.3 (9.2-11.2); PTT 27.6 (25-32)
[2017-04-06 14:55] LABS: TROP-I INTERPRETATION NEGATIVE; TROPONIN-I < 0.01 ng/mL (0.0-0.30)
[2017-04-06 15:09] LABS: ANION GAP 10 MEQ/L (2-14); CHLORIDE 104 MEQ/L (99-109); POTASSIUM 4.1 MEQ/L (3.7-5.4); SAMPLE HEMOLYSIS CHECK 0; SAMPLE ICTERIC CHECK 0; SAMPLE LIPEMIA CHECK 0; SODIUM 138 MEQ/L (136-147); TOTAL BILIRUBIN 0.3 MG/DL (0.0-1.0)
[2017-04-06 15:17] LABS: ALKALINE PHOSPHATASE 93 IU/L (3-129); GFR ESTIMATE (CALCULATED) > 59 mL/min/; GLUCOSE 101 mg/dL (70-99); SERUM ETHYL ALCOHOL < 10 mg/dL; UREA NITROGEN (BUN) 11 mg/dL (9-23)
[2017-04-06 15:50] LABS: AMPHETAMINE NEGATIVE (500 ng/mL); BARBITURATES NEGATIVE (200 ng/mL); BENZODIAZEPINES PRESUMPTIVE POSITIVE (150 ng/mL); COCAINE NEGATIVE (150 ng/mL); INTERNAL CONTROLS VALID? YES; METHADONE NEGATIVE (200 ng/mL); METHAMPHETAMINE NEGATIVE (500 ng/mL); OPIATES (MORPHINE) NEGATIVE (100 ng/mL); OXYCODONE NEGATIVE (100 ng/mL); PHENCYCLIDINE NEGATIVE (25 ng/mL); PROPOXYPHENE NEGATIVE (300 ng/mL); THC CANNABINOIDS NEGATIVE (50 ng/mL); TRICYCLIC ANTIDEPRESSANTS NEGATIVE (300 ng/mL)
[2017-04-06 15:51] LABS: ADD MEDTOX COMMENT Y
[2017-04-06 16:32] LABS: BENZODIAZEPINES, URINE SCREEN POSITIVE (200 ng/mL)
[2017-04-06 16:35] LABS: TROP-I INTERPRETATION NEGATIVE; TROPONIN-I < 0.01 ng/mL (0.0-0.30)
[2017-04-06 16:57] VITALS: BP 135/78
== END 2017-04-06 16:58 | disposition home or self-care (01) ==
LOC: EME → EDBD 12:59 → EME 12:59
PROVIDERS: Emergency Medicine
DX: R07.9 Chest pain, unspecified (principal); R06.02 Shortness of breath; F19.10 Other psychoactive substance abuse, uncomplicated; Z59.0 Homelessness; Z91.14 Patient's other noncompliance with medication regimen; F31.9 Bipolar disorder, unspecified; J44.9 Chronic obstructive pulmonary disease, unspecified; G43.909 Migraine, unspecified, not intractable, without status migrainosus; F17.200 Nicotine dependence, unspecified, uncomplicated; Z86.718 Personal history of other venous thrombosis and embolism
CPT/HCPCS: 71275; 80053; 84484; 84999; 85027; 85610; 85730; 93005; 99281; 99285; G0480; J7030

== ENCOUNTER 2017-04-09 16:14 | Emergency (ER) | payer OTHER ==
[~2017-04-09] VITALS: Ht 177.8 cm; Wt 97.1 kg
[2017-04-09 17:09] LABS: MCH 33.1 PG (29.0-34.0); MCHC 34.6 G/DL (30.0-36.0); MCV 95.8 FL (86-99); MEAN PLAT.VOLUME 9.1 uM^3 (9.0-12.4); PLATELET COUNT 227 K/uL (156-360); RBC DIS.WIDTH-CV 14.1 % (11.8-14.6); RBC DIS.WIDTH-SD 49.1 % (39-53); WHITE BLOOD COUNT 7.4 K/uL (4.1-10.2)
[2017-04-09 17:21] LABS: CHLORIDE 107 mEq/L (99-109); POTASSIUM 4.4 mEq/L (3.7-5.4); SODIUM 140 mEq/L (136-147)
[2017-04-09 17:22] LABS: GLUCOSE 108 mg/dL (70-99)
[2017-04-09 17:24] LABS: ANION GAP 11 MEQ/L (2-14)
[2017-04-09 17:26] LABS: GFR ESTIMATE (CALCULATED) 55 mL/min/
[2017-04-09 17:27] LABS: UREA NITROGEN (BUN) 22 mg/dL (9-23)
[2017-04-09 17:31] LABS: TROP-I INTERPRETATION NEGATIVE; TROPONIN-I < 0.01 ng/mL (0.0-0.30)
[2017-04-09] MEDS ORDERED: XARELTO15 MG PO (19:52)
[2017-04-09 20:09] VITALS: BP 138/87
== END 2017-04-09 20:11 | disposition home or self-care (01) ==
LOC: EME 16:14
PROVIDERS: Emergency Medicine
DX: I82.4Z2 Acute embolism and thrombosis of unspecified deep veins of left distal lower extremity (principal); T45.516A Underdosing of anticoagulants, initial encounter; Z91.128 Patient's intentional underdosing of medication regimen for other reason; Z86.711 Personal history of pulmonary embolism; F17.200 Nicotine dependence, unspecified, uncomplicated; Z59.0 Homelessness; Z88.2 Allergy status to sulfonamides; Z88.6 Allergy status to analgesic agent
CPT/HCPCS: 71020; 80048; 84484; 85027; 93005; 93971; 99281; 99283; J1885; J2270

== ENCOUNTER 2017-04-12 02:31 | Emergency (ER) | payer OTHER ==
[~2017-04-12] VITALS: Ht 177.8 cm; Wt 94.2 kg
[2017-04-12] MEDS ORDERED: ERYTHROMYC1 APPLICAT RIGHT EYE (04:28)
[2017-04-12 04:58] VITALS: BP 126/84
== END 2017-04-12 05:00 | disposition home or self-care (01) ==
LOC: EME 02:31
PROC: 0CQ0XZZ Repair Upper Lip, External Approach (ICD-10-PCS; principal; 2017-04-12)
DX: S05.01XA Injury of conjunctiva and corneal abrasion without foreign body, right eye, initial encounter (principal); S01.511A Laceration without foreign body of lip, initial encounter; F17.200 Nicotine dependence, unspecified, uncomplicated; Y09 Assault by unspecified means; Z88.6 Allergy status to analgesic agent
CPT/HCPCS: 70450; 70486; 99281; 99285; J2405; J7030

== ENCOUNTER 2017-04-12 07:04 | Emergency (ER) | payer OTHER ==
[~2017-04-12] VITALS: Ht 177.8 cm; Wt 82.2 kg
[~2017-04-12 07:04] MED LIST changes: +ERYTHROMYC1 APPLICAT RIGHT EYE
[2017-04-12 08:25] VITALS: BP 120/78
== END 2017-04-12 08:51 | disposition home or self-care (01) ==
LOC: EME 07:04
DX: S05.01XA Injury of conjunctiva and corneal abrasion without foreign body, right eye, initial encounter (principal); Y04.8XXA Assault by other bodily force, initial encounter; Z59.0 Homelessness; Z88.8 Allergy status to other drugs, medicaments and biological substances; Z88.6 Allergy status to analgesic agent; Z88.5 Allergy status to narcotic agent; Z88.2 Allergy status to sulfonamides; F17.200 Nicotine dependence, unspecified, uncomplicated
CPT/HCPCS: 99281; 99283; J1885

== ENCOUNTER 2017-04-12 10:24 | Emergency (ER) | payer OTHER ==
[~2017-04-12] VITALS: Ht 177.8 cm; Wt 94.9 kg
[2017-04-12 11:50] VITALS: BP 129/61
== END 2017-04-12 11:59 | disposition home or self-care (01) ==
LOC: EME 10:24
DX: G40.909 Epilepsy, unspecified, not intractable, without status epilepticus (principal); F10.10 Alcohol abuse, uncomplicated; Z91.19 Patient's noncompliance with other medical treatment and regimen; F17.200 Nicotine dependence, unspecified, uncomplicated; Z59.0 Homelessness; Z88.8 Allergy status to other drugs, medicaments and biological substances; Z88.2 Allergy status to sulfonamides; Z88.6 Allergy status to analgesic agent; Z88.5 Allergy status to narcotic agent; J44.9 Chronic obstructive pulmonary disease, unspecified; F20.9 Schizophrenia, unspecified
CPT/HCPCS: 99281; 99284

== ENCOUNTER 2017-04-13 12:35 | Emergency (ER) | payer OTHER ==
[~2017-04-13] VITALS: Ht 177.8 cm; Wt 95.7 kg
[2017-04-13 13:17] VITALS: BP 116/76
== END 2017-04-13 13:26 | disposition home or self-care (01) ==
LOC: EME 12:35
DX: F19.10 Other psychoactive substance abuse, uncomplicated (principal); F17.200 Nicotine dependence, unspecified, uncomplicated; Z59.0 Homelessness; Z88.2 Allergy status to sulfonamides; Z88.6 Allergy status to analgesic agent
CPT/HCPCS: 99281; 99284

== ENCOUNTER 2017-04-24 11:34 | Emergency (ER) | payer OTHER | END 2017-04-24 11:39 | disposition left against medical advice (07) | LOC: EME 11:34 | DX: F16.10 Hallucinogen abuse, uncomplicated (principal); Z53.21 Procedure and treatment not carried out due to patient leaving prior to being seen by health care provider ==

== ENCOUNTER 2017-04-24 15:11 | Emergency (ER) | payer OTHER | END 2017-04-24 15:16 | disposition home or self-care (01) | LOC: EME 15:11 | DX: T40.7X1A Poisoning by cannabis (derivatives), accidental (unintentional), initial encounter (principal); F12.10 Cannabis abuse, uncomplicated ==

== ENCOUNTER 2017-05-23 14:41 | Emergency (ER) | payer OTHER ==
[~2017-05-23] VITALS: Ht 177.8 cm; Wt 95.7 kg
[2017-05-23 15:52] VITALS: BP 102/66
== END 2017-05-23 15:54 | disposition left against medical advice (07) ==
LOC: EME 14:41
DX: T50.991A Poisoning by other drugs, medicaments and biological substances, accidental (unintentional), initial encounter (principal); J44.9 Chronic obstructive pulmonary disease, unspecified; F17.200 Nicotine dependence, unspecified, uncomplicated
CPT/HCPCS: 99281; 99284

== ENCOUNTER 2017-06-01 18:23 | Emergency (ER) | payer OTHER ==
[~2017-06-01] VITALS: Ht 177.8 cm; Wt 92.0 kg
[2017-06-01] MEDS ORDERED: DOXEPIN HCL25 MG PO (19:55)
[2017-06-01 20:08] LABS: ADD MIUA? NO; BILIRUBIN NEGATIVE; BLOOD NEGATIVE; COLOR YELLOW ((YELLOW)); GLUCOSE (STRIP) NEGATIVE; KETONES NEGATIVE; LEUKOCYTES NEGATIVE; NITRITE NEGATIVE; PROTEIN (STRIP) NEGATIVE; SPECIFIC GRAVITY 1.005 (1.000-1.030); UCUL ADDED? NO; UROBILINOGEN 0.2 MG/DL (0.2-1.0)
[2017-06-01 20:18] LABS: ADD MEDTOX COMMENT Y; AMPHETAMINE NEGATIVE (500 ng/mL); BARBITURATES NEGATIVE (200 ng/mL); BENZODIAZEPINES NEGATIVE (150 ng/mL); COCAINE PRESUMPTIVE POSITIVE (150 ng/mL); INTERNAL CONTROLS VALID? YES; METHADONE NEGATIVE (200 ng/mL); METHAMPHETAMINE NEGATIVE (500 ng/mL); OPIATES (MORPHINE) NEGATIVE (100 ng/mL); OXYCODONE NEGATIVE (100 ng/mL); PHENCYCLIDINE NEGATIVE (25 ng/mL); PROPOXYPHENE NEGATIVE (300 ng/mL); THC CANNABINOIDS NEGATIVE (50 ng/mL); TRICYCLIC ANTIDEPRESSANTS NEGATIVE (300 ng/mL)
[2017-06-01 20:29] LABS: HEMATOCRIT 44.6 % (38.0-50.0); MCHC 34.5 G/DL (30.0-36.0); MCV 95.5 FL (86-99); PLATELET COUNT 149 K/uL (156-360); RBC DIS.WIDTH-CV 13.2 % (11.8-14.6); RBC DIS.WIDTH-SD 46.9 % (39-53); RED BLOOD COUNT 4.67 M/uL (4.00-5.50); WHITE BLOOD COUNT 7.1 K/uL (4.1-10.2)
[2017-06-01 20:38] LABS: CHLORIDE 109 mEq/L (99-109); POTASSIUM 3.5 mEq/L (3.7-5.4); SODIUM 146 mEq/L (136-147)
[2017-06-01 20:40] LABS: GLUCOSE 86 mg/dL (70-99)
[2017-06-01 20:41] LABS: ANION GAP 12 MEQ/L (2-14)
[2017-06-01 20:42] LABS: TOTAL BILIRUBIN 0.3 mg/dL (0.0-1.0)
[2017-06-01 20:43] LABS: ALKALINE PHOSPHATASE 96 IU/L (3-129); SERUM ETHYL ALCOHOL 157 mg/dL
[2017-06-01 20:44] LABS: GFR ESTIMATE (CALCULATED) > 59 mL/min/
[2017-06-01 20:45] LABS: UREA NITROGEN (BUN) 14 mg/dL (9-23)
[2017-06-01] MEDS ORDERED: KEPPRA500 MG PO (23:32)
[2017-06-01 23:51] VITALS: BP 120/109
== END 2017-06-01 23:52 | disposition home or self-care (01) ==
LOC: EME 18:23
PROVIDERS: Emergency Medicine
DX: G40.909 Epilepsy, unspecified, not intractable, without status epilepticus (principal); F10.10 Alcohol abuse, uncomplicated; F19.10 Other psychoactive substance abuse, uncomplicated; F31.32 Bipolar disorder, current episode depressed, moderate; F60.2 Antisocial personality disorder; J44.9 Chronic obstructive pulmonary disease, unspecified; F17.200 Nicotine dependence, unspecified, uncomplicated
CPT/HCPCS: 80053; 81003; 84999; 85027; 90839; 99281; 99284; G0480; J2060; J2250

== ENCOUNTER 2017-06-02 08:51 | Emergency (ER) | payer OTHER ==
[~2017-06-02] VITALS: Ht 177.8 cm; Wt 92.8 kg
[2017-06-02 11:06] VITALS: BP 120/76
== END 2017-06-02 11:07 | disposition home or self-care (01) ==
LOC: EME → EDBD 08:51 → EME 11:07
DX: G40.909 Epilepsy, unspecified, not intractable, without status epilepticus (principal); D68.51 Activated protein C resistance; Z79.01 Long term (current) use of anticoagulants; Z86.711 Personal history of pulmonary embolism; Z86.718 Personal history of other venous thrombosis and embolism; F17.200 Nicotine dependence, unspecified, uncomplicated
CPT/HCPCS: 99281; 99284

== ENCOUNTER 2017-06-03 12:05 | Emergency (ER) | payer OTHER ==
[~2017-06-03] VITALS: Ht 177.8 cm; Wt 98.8 kg
[2017-06-03 13:07] LABS: EOSINOPHIL (%) 2.2 % (0-5); EOSINOPHIL COUNT 0.1 K/uL (0-0.3); HEMATOCRIT 45.6 % (38.0-50.0); IMMATURE GRANULOCYTE (%) 0.2 % (0.0-0.7); INSTRUMENT ABS NEUTROPHIL CT 3.8 K/uL; LYMPHOCYTE COUNT 1.8 K/uL (1.0-2.8); MCH 32.9 PG (29.0-34.0); MCHC 34.9 G/DL (30.0-36.0); MCV 94.4 FL (86-99); MEAN PLAT.VOLUME 9.4 uM^3 (9.0-12.4); MONOCYTE (%) 9.3 % (3-12); MONOCYTE COUNT 0.6 K/uL (0-0.8); NEUTROPHIL (%) 59.1 % (45-76); NEUTROPHIL COUNT 3.8 K/uL (1.8-6.4); PLATELET COUNT 161 K/uL (156-360); RBC DIS.WIDTH-CV 13.2 % (11.8-14.6); RBC DIS.WIDTH-SD 45.7 % (39-53); RED BLOOD COUNT 4.83 M/uL (4.00-5.50); WHITE BLOOD COUNT 6.4 K/uL (4.1-10.2)
[2017-06-03 13:22] LABS: CHLORIDE 108 mEq/L (99-109); POTASSIUM 3.7 mEq/L (3.7-5.4); SODIUM 141 mEq/L (136-147)
[2017-06-03 13:23] LABS: GLUCOSE 98 mg/dL (70-99)
[2017-06-03 13:25] LABS: ANION GAP 10 MEQ/L (2-14)
[2017-06-03 13:27] LABS: GFR ESTIMATE (CALCULATED) > 59 mL/min/; SERUM ETHYL ALCOHOL < 10 mg/dL
[2017-06-03 13:28] LABS: UREA NITROGEN (BUN) 13 mg/dL (9-23)
[2017-06-03 14:06] VITALS: BP 125/81
== END 2017-06-03 14:08 | disposition home or self-care (01) ==
LOC: EME 12:05
PROVIDERS: Emergency Medicine
DX: R56.9 Unspecified convulsions (principal); J44.9 Chronic obstructive pulmonary disease, unspecified; Z86.711 Personal history of pulmonary embolism; Z86.718 Personal history of other venous thrombosis and embolism; F17.200 Nicotine dependence, unspecified, uncomplicated
CPT/HCPCS: 80048; 85025; 99281; 99284; G0480

== ENCOUNTER 2017-06-04 09:55 | Emergency (ER) | payer OTHER ==
[~2017-06-04] VITALS: Ht 182.9 cm; Wt 92.8 kg
[2017-06-04 10:40] LABS: HEMATOCRIT 44.8 % (38.0-50.0); MCH 33.1 PG (29.0-34.0); MCHC 34.4 G/DL (30.0-36.0); MCV 96.3 FL (86-99); PLATELET COUNT 171 K/uL (156-360); RBC DIS.WIDTH-CV 13.8 % (11.8-14.6); RED BLOOD COUNT 4.65 M/uL (4.00-5.50); WHITE BLOOD COUNT 5.1 K/uL (4.1-10.2)
[2017-06-04 10:48] LABS: CHLORIDE 113 mEq/L (99-109); SODIUM 147 mEq/L (136-147)
[2017-06-04 10:51] LABS: GLUCOSE 97 mg/dL (70-99)
[2017-06-04 10:52] LABS: ANION GAP 10 MEQ/L (2-14); TOTAL BILIRUBIN 0.3 mg/dL (0.0-1.0)
[2017-06-04 10:53] LABS: SERUM ETHYL ALCOHOL 205 mg/dL
[2017-06-04 10:54] LABS: ALKALINE PHOSPHATASE 96 IU/L (3-129); GFR ESTIMATE (CALCULATED) > 59 mL/min/
[2017-06-04 10:55] LABS: UREA NITROGEN (BUN) 12 mg/dL (9-23)
[2017-06-04 15:33] LABS: TROP-I INTERPRETATION NEGATIVE; TROPONIN-I < 0.01 ng/mL (0.0-0.30)
[2017-06-04 19:35] VITALS: BP 130/85
== END 2017-06-04 19:35 | disposition left against medical advice (07) ==
LOC: EME → EDBD 09:55 → EME 14:28
PROVIDERS: Emergency Medicine
DX: R55 Syncope and collapse (principal); R56.9 Unspecified convulsions; R29.6 Repeated falls; R45.6 Violent behavior; M79.601 Pain in right arm; F10.99 Alcohol use, unspecified with unspecified alcohol-induced disorder; Y90.7 Blood alcohol level of 200-239 mg/100 ml; Z86.718 Personal history of other venous thrombosis and embolism; Z86.711 Personal history of pulmonary embolism; D68.51 Activated protein C resistance; F17.200 Nicotine dependence, unspecified, uncomplicated
CPT/HCPCS: 70450; 80053; 80156; 84484; 85027; 93005; 99281; 99285; G0480; J1630; J2060; J2250

== ENCOUNTER 2017-06-05 10:43 | Emergency (ER) | payer OTHER ==
[~2017-06-05] VITALS: Ht 177.8 cm; Wt 92.8 kg
[2017-06-05 12:18] LABS: EOSINOPHIL COUNT 0.1 K/uL (0-0.3); HEMATOCRIT 46.1 % (38.0-50.0); IMMATURE GRANULOCYTE (%) 0.3 % (0.0-0.7); INSTRUMENT ABS NEUTROPHIL CT 5.1 K/uL; LYMPHOCYTE COUNT 1.5 K/uL (1.0-2.8); MCH 33.3 PG (29.0-34.0); MCHC 34.9 G/DL (30.0-36.0); MCV 95.2 FL (86-99); MEAN PLAT.VOLUME 9.2 uM^3 (9.0-12.4); MONOCYTE (%) 7.3 % (3-12); MONOCYTE COUNT 0.5 K/uL (0-0.8); NEUTROPHIL (%) 70.6 % (45-76); NEUTROPHIL COUNT 5.1 K/uL (1.8-6.4); PLATELET COUNT 182 K/uL (156-360); RBC DIS.WIDTH-CV 13.4 % (11.8-14.6); RBC DIS.WIDTH-SD 47.1 % (39-53); RED BLOOD COUNT 4.84 M/uL (4.00-5.50); WHITE BLOOD COUNT 7.2 K/uL (4.1-10.2)
[2017-06-05 12:22] LABS: ADD MIUA? NO; BILIRUBIN NEGATIVE; BLOOD NEGATIVE; COLOR YELLOW ((YELLOW)); GLUCOSE (STRIP) NEGATIVE; KETONES NEGATIVE; LEUKOCYTES NEGATIVE; NITRITE NEGATIVE; PROTEIN (STRIP) NEGATIVE; SPECIFIC GRAVITY 1.016 (1.000-1.030); UCUL ADDED? NO; UROBILINOGEN 0.2 MG/DL (0.2-1.0)
[2017-06-05 12:31] LABS: AMPHETAMINE NEGATIVE (500 ng/mL); BARBITURATES NEGATIVE (200 ng/mL); BENZODIAZEPINES PRESUMPTIVE POSITIVE (150 ng/mL); COCAINE PRESUMPTIVE POSITIVE (150 ng/mL); INTERNAL CONTROLS VALID? YES; METHADONE NEGATIVE (200 ng/mL); METHAMPHETAMINE NEGATIVE (500 ng/mL); OPIATES (MORPHINE) NEGATIVE (100 ng/mL); OXYCODONE NEGATIVE (100 ng/mL); PHENCYCLIDINE NEGATIVE (25 ng/mL); PROPOXYPHENE NEGATIVE (300 ng/mL); THC CANNABINOIDS PRESUMPTIVE POSITIVE (50 ng/mL); TRICYCLIC ANTIDEPRESSANTS NEGATIVE (300 ng/mL)
[2017-06-05 12:32] LABS: ADD MEDTOX COMMENT Y
[2017-06-05 12:32] LABS: CHLORIDE 106 mEq/L (99-109); POTASSIUM 3.7 mEq/L (3.7-5.4); SODIUM 140 mEq/L (136-147)
[2017-06-05 12:34] LABS: GLUCOSE 100 mg/dL (70-99)
[2017-06-05 12:35] LABS: ANION GAP 12 MEQ/L (2-14)
[2017-06-05 12:37] LABS: SERUM ETHYL ALCOHOL < 10 mg/dL
[2017-06-05 12:38] LABS: ALKALINE PHOSPHATASE 103 IU/L (3-129); GFR ESTIMATE (CALCULATED) > 59 mL/min/
[2017-06-05 12:39] LABS: TOTAL BILIRUBIN 0.7 mg/dL (0.0-1.0); UREA NITROGEN (BUN) 12 mg/dL (9-23)
[2017-06-05 12:41] LABS: CREATINE KINASE 703 IU/L (1-294); TOTAL CK 703 IU/L (1-294)
[2017-06-05 12:53] LABS: CK-MB 3.9 ng/mL (0.0-4.9)
[2017-06-05 13:18] LABS: BENZODIAZEPINES, URINE SCREEN POSITIVE (200 ng/mL)
[2017-06-05 18:33] VITALS: BP 130/78
== END 2017-06-05 18:44 | disposition home or self-care (01) ==
LOC: EME → EDBD 10:43 → EDOF 16:25 → EME 16:25
PROVIDERS: Emergency Medicine
DX: R56.9 Unspecified convulsions (principal); F19.10 Other psychoactive substance abuse, uncomplicated; F32.9 Major depressive disorder, single episode, unspecified; Z88.2 Allergy status to sulfonamides; Z88.6 Allergy status to analgesic agent
CPT/HCPCS: 80053; 81003; 82550; 82553; 84999; 85025; 90832; 95819; 99281; 99285; G0480; J1953; J7030; J7050

== ENCOUNTER 2017-06-20 01:11 | Emergency (ER) | payer OTHER ==
[~2017-06-20] VITALS: Ht 175.3 cm; Wt 95.7 kg
[2017-06-20 05:00] VITALS: BP 103/58
== END 2017-06-20 06:09 | disposition home or self-care (01) ==
LOC: EME → EDBD 01:11 → EME 01:11
DX: F19.10 Other psychoactive substance abuse, uncomplicated (principal); F10.129 Alcohol abuse with intoxication, unspecified; S00.81XA Abrasion of other part of head, initial encounter; J44.9 Chronic obstructive pulmonary disease, unspecified; F20.9 Schizophrenia, unspecified; Z86.718 Personal history of other venous thrombosis and embolism; Z86.711 Personal history of pulmonary embolism; F17.200 Nicotine dependence, unspecified, uncomplicated
CPT/HCPCS: 70450; 71010; 99281; 99284

== ENCOUNTER 2017-07-15 00:49 | Emergency (ER) | payer OTHER ==
[~2017-07-15] VITALS: Ht 177.8 cm; Wt 91.4 kg
[2017-07-15 02:28] VITALS: BP 136/98
[2017-07-16] MEDS ORDERED: PEN-VEE K,VEET500 MG PO (00:36)
[2017-07-16] MEDS ORDERED: MOTRIN800 MG PO (00:36)
[2017-07-16] MEDS ORDERED: UNABLE TO OBTAIN (02:37)
== END 2017-07-15 02:28 | disposition home or self-care (01) ==
LOC: EME 00:49
PROC: 3E0234Z Introduction of Serum, Toxoid and Vaccine into Muscle, Percutaneous Approach (ICD-10-PCS; principal; 2017-07-15)
DX: S00.83XA Contusion of other part of head, initial encounter (principal); R04.0 Epistaxis; S80.212A Abrasion, left knee, initial encounter; S80.211A Abrasion, right knee, initial encounter; Z23 Encounter for immunization; W01.198A Fall on same level from slipping, tripping and stumbling with subsequent striking against other object, initial encounter; Z59.0 Homelessness; Z79.01 Long term (current) use of anticoagulants; D68.51 Activated protein C resistance; K02.9 Dental caries, unspecified; F17.200 Nicotine dependence, unspecified, uncomplicated
CPT/HCPCS: 70450; 70486; 72125; 99281; 99284; J1885

== ENCOUNTER 2017-07-16 00:14 | Emergency (ER) | payer OTHER ==
[~2017-07-16] VITALS: Ht 177.8 cm; Wt 93.2 kg
[2017-07-16] MEDS ORDERED: PEN-VEE K,VEET500 MG PO (00:36)
[2017-07-16] MEDS ORDERED: MOTRIN800 MG PO (00:36)
[2017-07-16 02:36] VITALS: BP 113/75
[2017-07-16] MEDS ORDERED: UNABLE TO OBTAIN (02:37)
== END 2017-07-16 02:50 | disposition home or self-care (01) ==
LOC: EME 00:14
DX: K02.9 Dental caries, unspecified (principal); K08.89 Other specified disorders of teeth and supporting structures; R68.84 Jaw pain; F17.200 Nicotine dependence, unspecified, uncomplicated; Z86.711 Personal history of pulmonary embolism; Z86.718 Personal history of other venous thrombosis and embolism; Z88.2 Allergy status to sulfonamides; Z88.6 Allergy status to analgesic agent
CPT/HCPCS: 99281; 99284

== ENCOUNTER 2017-10-01 14:23 | Inpatient (IN) | payer OTHER ==
[~2017-10-01] VITALS: Ht 177.8 cm; Wt 91.9 kg
[~2017-10-01 14:23] MED LIST changes: +PEN-VEE K,VEET500 MG PO; +UNABLE TO OBTAIN
[2017-10-01 14:57] LABS: HEMATOCRIT 42.8 % (38.0-50.0); MCH 33.3 PG (29.0-34.0); MCHC 35.3 G/DL (30.0-36.0); MCV 94.5 FL (86-99); MEAN PLAT.VOLUME 9.3 uM^3 (9.0-12.4); PLATELET COUNT 203 K/uL (156-360); RBC DIS.WIDTH-CV 13.2 % (11.8-14.6); RED BLOOD COUNT 4.53 M/uL (4.00-5.50)
[2017-10-01 15:08] LABS: CHLORIDE 106 mEq/L (99-109); POTASSIUM 3.7 mEq/L (3.7-5.4); SODIUM 141 mEq/L (136-147)
[2017-10-01 15:09] LABS: GLUCOSE 170 mg/dL (70-99)
[2017-10-01 15:11] LABS: ANION GAP 14 MEQ/L (2-14)
[2017-10-01 15:13] LABS: GFR ESTIMATE (CALCULATED) > 59 mL/min/; SERUM ETHYL ALCOHOL < 10 mg/dL
[2017-10-01 15:15] LABS: UREA NITROGEN (BUN) 16 mg/dL (9-23)
[2017-10-01 15:16] LABS: SALICYLATE < 5.0 MG/DL (15-30)
[2017-10-02] MEDS ORDERED: XARELTO20 MG PO (08:48)
[2017-10-02] MEDS ORDERED: KEPPRA1000 MG PO (08:48)
[2017-10-02] MEDS ORDERED: DESYREL100 MG PO (08:49)
[2017-10-02] MEDS ORDERED: CELEXA10 MG PO (08:49)
[2017-10-02] MEDS ORDERED: ATARAX,VISTARIL25 MG PO (08:50)
[2017-10-02] MEDS ORDERED: DOXEPIN HCL25 MG PO (08:51)
[2017-10-02] MEDS ORDERED: BACLOFEN10 MG PO (08:52)
[2017-10-02] MEDS ORDERED: LATUDA80 MG PO (08:52)
[2017-10-02] MEDS ORDERED: AMITRIPTYLINE H25 MG PO (08:53)
[2017-10-02] MEDS ORDERED: LEXAPRO10 MG PO (08:54)
[2017-10-02] MEDS ORDERED: FOLIC ACID1 MG PO (08:54)
[2017-10-02] MEDS ORDERED: VITAMIN B-1100 MG PO (08:55)
[2017-10-02 09:05] VITALS: BP 123/84
[2017-10-02 09:13] VITALS: BP 123/84
[2017-10-02 15:44] VITALS: BP 127/85
[2017-10-03 07:51] VITALS: BP 128/70
[2017-10-03 15:23] VITALS: BP 122/77
[2017-10-04 08:00] VITALS: BP 118/67
[2017-10-04 15:37] VITALS: BP 128/88
[2017-10-05 07:46] VITALS: BP 126/60
[2017-10-05 15:33] VITALS: BP 128/64
[2017-10-06 07:42] VITALS: BP 116/70
[2017-10-06 17:58] VITALS: BP 112/73
[2017-10-07 08:06] VITALS: BP 116/63
[2017-10-07] MEDS ORDERED: BACLOFEN10 MG PO (09:08)
[2017-10-07] MEDS ORDERED: ESCITALOPRAM OX20 MG PO (09:08)
[2017-10-07] MEDS ORDERED: ARIPIPRAZOLE10 MG PO (09:08)
[2017-10-07] MEDS ORDERED: AMITRIPTYLINE H25 MG PO (09:08)
[2017-10-07] MEDS ORDERED: KEPPRA1000 MG PO (09:08)
[2017-10-07] MEDS ORDERED: XARELTO20 MG PO (09:08)
== END 2017-10-07 10:35 | disposition home or self-care (01) | DRG 882 ==
LOC: EME 14:23 → 1WEST 10-02 03:20 → EDOF 10-02 03:20 → ENRESERV 10-02 05:59 → 1WEST 10-02 08:21
PROVIDERS: Emergency Medicine
DX: F43.25 Adjustment disorder with mixed disturbance of emotions and conduct (principal); F60.2 Antisocial personality disorder; F31.9 Bipolar disorder, unspecified; R45.850 Homicidal ideations; R45.851 Suicidal ideations; G43.909 Migraine, unspecified, not intractable, without status migrainosus; F17.200 Nicotine dependence, unspecified, uncomplicated; J44.9 Chronic obstructive pulmonary disease, unspecified; Z59.0 Homelessness; Z88.2 Allergy status to sulfonamides
CPT/HCPCS: 80048; 85027; 90839; 97150 GO; 99281; 99285; G0480; J1630; J2060; Q0177

== ENCOUNTER 2017-10-28 10:14 | Emergency (ER) | payer OTHER ==
[~2017-10-28] VITALS: Ht 177.8 cm; Wt 89.8 kg
[~2017-10-28 10:14] MED LIST changes: +AMITRIPTYLINE H25 MG PO; +ARIPIPRAZOLE10 MG PO; +CELEXA10 MG PO; +DESYREL100 MG PO; +ESCITALOPRAM OX20 MG PO; +LATUDA80 MG PO; +VITAMIN B-1100 MG PO
[2017-10-28 10:41] LABS: EOSINOPHIL (%) 0.4 % (0-5); HEMATOCRIT 45.8 % (38.0-50.0); IMMATURE GRANULOCYTE (%) 0.4 % (0.0-0.7); INSTRUMENT ABS NEUTROPHIL CT 4.1 K/uL; LYMPHOCYTE COUNT 0.8 K/uL (1.0-2.8); MCHC 33.8 G/DL (30.0-36.0); MCV 97.4 FL (86-99); MEAN PLAT.VOLUME 9.3 uM^3 (9.0-12.4); MONOCYTE (%) 9.8 % (3-12); MONOCYTE COUNT 0.5 K/uL (0-0.8); NEUTROPHIL (%) 73.7 % (45-76); NEUTROPHIL COUNT 4.1 K/uL (1.8-6.4); PLATELET COUNT 214 K/uL (156-360); RBC DIS.WIDTH-CV 13.6 % (11.8-14.6); RBC DIS.WIDTH-SD 49.2 % (39-53); WHITE BLOOD COUNT 5.5 K/uL (4.1-10.2)
[2017-10-28 10:46] LABS: PROTHROMBIN TIME 11.3 SEC (10.2-12.9)
[2017-10-28 10:50] LABS: CHLORIDE 104 mEq/L (99-109); POTASSIUM 3.9 mEq/L (3.7-5.4); SODIUM 140 mEq/L (136-147)
[2017-10-28 10:51] LABS: GLUCOSE 138 mg/dL (70-99)
[2017-10-28 10:53] LABS: ANION GAP 21 MEQ/L (2-14)
[2017-10-28 10:55] LABS: GFR ESTIMATE (CALCULATED) > 59 mL/min/
[2017-10-28 10:56] LABS: UREA NITROGEN (BUN) 19 mg/dL (9-23)
[2017-10-28 14:45] VITALS: BP 126/89
== END 2017-10-28 14:48 | disposition home or self-care (01) ==
LOC: EME 10:14
PROVIDERS: Emergency Medicine
DX: G40.909 Epilepsy, unspecified, not intractable, without status epilepticus (principal); Z91.14 Patient's other noncompliance with medication regimen; J44.9 Chronic obstructive pulmonary disease, unspecified; F32.9 Major depressive disorder, single episode, unspecified; F31.9 Bipolar disorder, unspecified; F20.9 Schizophrenia, unspecified; D68.2 Hereditary deficiency of other clotting factors; Z86.718 Personal history of other venous thrombosis and embolism; Z86.711 Personal history of pulmonary embolism; F17.200 Nicotine dependence, unspecified, uncomplicated; Z88.2 Allergy status to sulfonamides; Z88.6 Allergy status to analgesic agent; Z88.5 Allergy status to narcotic agent; Z88.8 Allergy status to other drugs, medicaments and biological substances
CPT/HCPCS: 70450; 80048; 85025; 85610; 99281; 99285; J1953; J7050

== ENCOUNTER 2017-10-31 16:36 | Inpatient (IN) | payer OTHER ==
[~2017-10-31] VITALS: Ht 172.7 cm; Wt 80.0 kg
[2017-10-31 17:41] LABS: HEMATOCRIT 44.1 % (38.0-50.0); MCH 33.7 PG (29.0-34.0); MCHC 34.9 G/DL (30.0-36.0); MCV 96.5 FL (86-99); MEAN PLAT.VOLUME 9.4 uM^3 (9.0-12.4); PLATELET COUNT 199 K/uL (156-360); RBC DIS.WIDTH-CV 13.8 % (11.8-14.6); RBC DIS.WIDTH-SD 48.9 % (39-53); RED BLOOD COUNT 4.57 M/uL (4.00-5.50)
[2017-10-31 17:50] LABS: CHLORIDE 106 mEq/L (99-109); POTASSIUM 4.3 mEq/L (3.7-5.4); SODIUM 138 mEq/L (136-147)
[2017-10-31 17:53] LABS: GLUCOSE 116 mg/dL (70-99)
[2017-10-31 17:54] LABS: ANION GAP 8 MEQ/L (2-14); TOTAL BILIRUBIN 0.6 mg/dL (0.0-1.0)
[2017-10-31 17:55] LABS: SERUM ETHYL ALCOHOL < 10 mg/dL
[2017-10-31 17:56] LABS: ALKALINE PHOSPHATASE 170 IU/L (3-129); GFR ESTIMATE (CALCULATED) > 59 mL/min/ (58.99-99999)
[2017-10-31 17:57] LABS: UREA NITROGEN (BUN) 15 mg/dL (9-23)
[2017-10-31 18:06] LABS: CK-MB 3.1 ng/mL (0.0-4.9)
[2017-10-31 18:37] LABS: CREATINE KINASE 260 IU/L (1-294); TOTAL CK 260 IU/L (1-294)
[2017-10-31 19:49] LABS: ADD MIUA? NO; BILIRUBIN NEGATIVE; BLOOD NEGATIVE; COLOR YELLOW ((YELLOW)); GLUCOSE (STRIP) NEGATIVE; KETONES NEGATIVE; LEUKOCYTES NEGATIVE; NITRITE NEGATIVE; PROTEIN (STRIP) NEGATIVE; SPECIFIC GRAVITY 1.013 (1.000-1.030); UCUL ADDED? NO
[2017-10-31 19:59] LABS: AMPHETAMINE NEGATIVE (500 ng/mL); BARBITURATES NEGATIVE (200 ng/mL); BENZODIAZEPINES NEGATIVE (150 ng/mL); COCAINE NEGATIVE (150 ng/mL); INTERNAL CONTROLS VALID? YES; METHADONE NEGATIVE (200 ng/mL); METHAMPHETAMINE NEGATIVE (500 ng/mL); OPIATES (MORPHINE) NEGATIVE (100 ng/mL); OXYCODONE NEGATIVE (100 ng/mL); PHENCYCLIDINE NEGATIVE (25 ng/mL); PROPOXYPHENE NEGATIVE (300 ng/mL); THC CANNABINOIDS NEGATIVE (50 ng/mL); TRICYCLIC ANTIDEPRESSANTS NEGATIVE (300 ng/mL)
[2017-10-31 21:02] VITALS: BP 141/81
[2017-10-31] MEDS ORDERED: LEXAPRO20 MG PO (21:23)
[2017-10-31] MEDS ORDERED: ABILIFY10 MG PO (21:24)
[2017-10-31] MEDS ORDERED: BACLOFEN20 MG PO (21:25)
[2017-10-31] MEDS ORDERED: XARELTO20 MG PO (21:26)
[2017-10-31] MEDS ORDERED: KEPPRA1000 MG PO (21:27)
[2017-10-31] MEDS ORDERED: AMITRIPTYLINE H25 MG PO (21:27)
[2017-11-01 07:40] VITALS: BP 99/54
[2017-11-01 15:56] VITALS: BP 103/54
[2017-11-02 07:55] VITALS: BP 100/65
[2017-11-02 15:27] VITALS: BP 100/56
[2017-11-03 08:02] VITALS: BP 107/53
[2017-11-03 16:23] VITALS: BP 104/58
[2017-11-04 07:43] VITALS: BP 117/64
[2017-11-04] MEDS ORDERED: TRIPLE ANTIB28.35 GM TP (09:01)
[2017-11-04] MEDS ORDERED: ZOLPIDEM TARTRAT5 MG PO (09:01)
[2017-11-04] MEDS ORDERED: ARIPIPRAZOLE10 MG PO (09:01)
== END 2017-11-04 12:48 | disposition home or self-care (01) | DRG 882 ==
LOC: EME 16:36 → EDOF 19:03 → 1WEST 19:03 → ENRESERV 20:55 → 1WEST 11-04 12:48
PROVIDERS: Emergency Medicine
DX: F43.25 Adjustment disorder with mixed disturbance of emotions and conduct (principal); F19.94 Other psychoactive substance use, unspecified with psychoactive substance-induced mood disorder; F31.60 Bipolar disorder, current episode mixed, unspecified; R45.851 Suicidal ideations; R45.850 Homicidal ideations; G40.909 Epilepsy, unspecified, not intractable, without status epilepticus; R74.8 Abnormal levels of other serum enzymes; F14.10 Cocaine abuse, uncomplicated; F11.10 Opioid abuse, uncomplicated; F10.10 Alcohol abuse, uncomplicated; F60.2 Antisocial personality disorder; F17.200 Nicotine dependence, unspecified, uncomplicated; D68.51 Activated protein C resistance; Z88.2 Allergy status to sulfonamides; Z88.6 Allergy status to analgesic agent
CPT/HCPCS: 80053; 81003; 82550; 82553; 85027; 90839; 97150 GO; 97165 GO; G0480

== ENCOUNTER 2017-11-08 18:03 | Emergency (ER) | payer OTHER ==
[~2017-11-08] VITALS: Ht 177.8 cm; Wt 92.1 kg
[~2017-11-08 18:03] MED LIST changes: +ABILIFY10 MG PO; +BACLOFEN20 MG PO; +LEXAPRO20 MG PO; +TRIPLE ANTIB28.35 GM TP
[2017-11-08 18:39] LABS: HEMATOCRIT 41.6 % (38.0-50.0); MCH 33.3 PG (29.0-34.0); MCHC 34.4 G/DL (30.0-36.0); PLATELET COUNT 201 K/uL (156-360); RBC DIS.WIDTH-CV 13.2 % (11.8-14.6); RBC DIS.WIDTH-SD 47.6 % (39-53); RED BLOOD COUNT 4.29 M/uL (4.00-5.50); WHITE BLOOD COUNT 5.5 K/uL (4.1-10.2)
[2017-11-08 18:58] LABS: CHLORIDE 106 mEq/L (99-109); SODIUM 140 mEq/L (136-147)
[2017-11-08 19:00] LABS: GLUCOSE 101 mg/dL (70-99)
[2017-11-08 19:01] LABS: ANION GAP 11 MEQ/L (2-14)
[2017-11-08 19:03] LABS: SERUM ETHYL ALCOHOL < 10 mg/dL
[2017-11-08 19:04] LABS: GFR ESTIMATE (CALCULATED) > 59 mL/min/ (58.99-99999)
[2017-11-08 19:05] LABS: UREA NITROGEN (BUN) 15 mg/dL (9-23)
[2017-11-08 20:50] LABS: AMPHETAMINE NEGATIVE (500 ng/mL); BENZODIAZEPINES NEGATIVE (150 ng/mL); COCAINE NEGATIVE (150 ng/mL); METHAMPHETAMINE NEGATIVE (500 ng/mL); OPIATES (MORPHINE) NEGATIVE (100 ng/mL); PHENCYCLIDINE NEGATIVE (25 ng/mL); THC CANNABINOIDS NEGATIVE (50 ng/mL); TRICYCLIC ANTIDEPRESSANTS PRESUMPTIVE POSITIVE (300 ng/mL)
[2017-11-08 20:53] LABS: BARBITURATES NEGATIVE (200 ng/mL); INTERNAL CONTROLS VALID? YES; METHADONE NEGATIVE (200 ng/mL); OXYCODONE NEGATIVE (100 ng/mL); PROPOXYPHENE NEGATIVE (300 ng/mL)
[2017-11-08 23:00] VITALS: BP 124/85
== END 2017-11-08 23:00 | disposition home or self-care (01) ==
LOC: EME 18:03
DX: F43.25 Adjustment disorder with mixed disturbance of emotions and conduct (principal); F19.94 Other psychoactive substance use, unspecified with psychoactive substance-induced mood disorder; F60.2 Antisocial personality disorder; R21 Rash and other nonspecific skin eruption; Z86.711 Personal history of pulmonary embolism; Z86.718 Personal history of other venous thrombosis and embolism; Z79.01 Long term (current) use of anticoagulants; F17.200 Nicotine dependence, unspecified, uncomplicated
CPT/HCPCS: 80048; 80175 90; 85027; 90837; 99281; 99284; G0480; J2060

== ENCOUNTER 2018-01-04 13:48 | Emergency (ER) | payer OTHER ==
[~2018-01-04] VITALS: Ht 177.8 cm; Wt 83.1 kg
[2018-01-04 14:24] LABS: HEMATOCRIT 48.9 % (38.0-50.0); HEMOGLOBIN 17.3 G/DL (12.5-16.6); MCH 33.1 PG (29.0-34.0); MCHC 35.4 G/DL (30.0-36.0); MCV 93.7 FL (86-99); PLATELET COUNT 281 K/uL (156-360); RBC DIS.WIDTH-CV 14.1 % (11.8-14.6); RBC DIS.WIDTH-SD 48.6 % (39-53); RED BLOOD COUNT 5.22 M/uL (4.00-5.50); WHITE BLOOD COUNT 9.1 K/uL (4.1-10.2)
[2018-01-04 14:34] LABS: INTER. NORMALIZED RATIO 1.8
[2018-01-04 14:37] LABS: CHLORIDE 101 mEq/L (99-109); POTASSIUM 3.8 mEq/L (3.7-5.4); PTT 38.9 SEC (25-37); SODIUM 139 mEq/L (136-147)
[2018-01-04 14:39] LABS: GLUCOSE 116 mg/dL (70-99)
[2018-01-04 14:42] LABS: CREATININE 1.3 mg/dL (0.6-1.3); GFR ESTIMATE (CALCULATED) > 59 mL/min/ (58.99-99999)
[2018-01-04 14:43] LABS: UREA NITROGEN (BUN) 16 mg/dL (9-23)
[2018-01-04 18:06] VITALS: BP 116/74
[2018-01-05] MEDS ORDERED: ZANTAC150 MG PO (12:01)
[2018-01-05] MEDS ORDERED: MOTRIN600 MG PO (12:01)
== END 2018-01-04 18:07 | disposition home or self-care (01) ==
LOC: EME 13:48
PROVIDERS: Emergency Medicine
DX: G40.909 Epilepsy, unspecified, not intractable, without status epilepticus (principal); S00.31XA Abrasion of nose, initial encounter; X58.XXXA Exposure to other specified factors, initial encounter; J44.9 Chronic obstructive pulmonary disease, unspecified; F31.9 Bipolar disorder, unspecified; F32.9 Major depressive disorder, single episode, unspecified; F20.9 Schizophrenia, unspecified; D68.2 Hereditary deficiency of other clotting factors; Z86.711 Personal history of pulmonary embolism; Z86.718 Personal history of other venous thrombosis and embolism; Z79.01 Long term (current) use of anticoagulants; F17.200 Nicotine dependence, unspecified, uncomplicated; Z88.2 Allergy status to sulfonamides; Z88.6 Allergy status to analgesic agent; Z88.5 Allergy status to narcotic agent; Z88.8 Allergy status to other drugs, medicaments and biological substances
CPT/HCPCS: 70450; 80048; 85027; 85610; 85730; 99281; 99284

== ENCOUNTER 2018-01-05 10:18 | Emergency (ER) | payer OTHER ==
[~2018-01-05] VITALS: Ht 177.8 cm; Wt 72.5 kg
[2018-01-05] MEDS ORDERED: MOTRIN600 MG PO (12:01)
[2018-01-05] MEDS ORDERED: ZANTAC150 MG PO (12:01)
[2018-01-05 12:18] LABS: BASOPHIL (%) 0.4 % (0-1); EOSINOPHIL (%) 0.1 % (0-5); HEMATOCRIT 48.6 % (38.0-50.0); HEMOGLOBIN 17.1 G/DL (12.5-16.6); IMMATURE GRANULOCYTE (%) 0.3 % (0.0-0.7); LYMPHOCYTE (%) 21.3 % (15-42); LYMPHOCYTE COUNT 1.5 K/uL (1.0-2.8); MCH 32.7 PG (29.0-34.0); MCHC 35.2 G/DL (30.0-36.0); MCV 92.9 FL (86-99); MONOCYTE (%) 10.9 % (3-12); MONOCYTE COUNT 0.8 K/uL (0-0.8); NEUTROPHIL COUNT 4.7 K/uL (1.8-6.4); PLATELET COUNT 276 K/uL (156-360); RBC DIS.WIDTH-CV 14.2 % (11.8-14.6); RBC DIS.WIDTH-SD 48.8 % (39-53); RED BLOOD COUNT 5.23 M/uL (4.00-5.50); WHITE BLOOD COUNT 7.1 K/uL (4.1-10.2)
[2018-01-05 12:24] LABS: INTER. NORMALIZED RATIO 1.3
[2018-01-05 12:27] LABS: PTT 33.1 SEC (25-37)
[2018-01-05 12:32] LABS: ALBUMIN 4.2 g/dL (3.2-4.8); CHLORIDE 106 mEq/L (99-109); POTASSIUM 3.9 mEq/L (3.7-5.4); SODIUM 141 mEq/L (136-147)
[2018-01-05 12:33] LABS: MAGNESIUM 2.3 mg/dL (1.3-2.7)
[2018-01-05 12:35] LABS: GLUCOSE 109 mg/dL (70-99); TOTAL PROTEIN 7.7 g/dL (6.4-8.3)
[2018-01-05 12:37] LABS: TOTAL BILIRUBIN 1.9 mg/dL (0.0-1.0)
[2018-01-05 12:38] LABS: ALKALINE PHOSPHATASE 171 IU/L (3-129); CREATININE 1.1 mg/dL (0.6-1.3); GFR ESTIMATE (CALCULATED) > 59 mL/min/ (58.99-99999); SERUM ETHYL ALCOHOL < 10 mg/dL
[2018-01-05 12:40] LABS: AST (GOT) 200 IU/L (2-34); UREA NITROGEN (BUN) 16 mg/dL (9-23)
[2018-01-05 12:41] LABS: ALT (GPT) 205 IU/L (3-49)
[2018-01-05 12:42] LABS: LIPASE 34 U/L (1.0-51.0)
[2018-01-05 16:47] VITALS: BP 124/82
== END 2018-01-05 16:30 | disposition home or self-care (01) ==
LOC: EME 10:18
PROVIDERS: Emergency Medicine
DX: M54.5 Low back pain (principal); R11.10 Vomiting, unspecified; R56.9 Unspecified convulsions; J44.9 Chronic obstructive pulmonary disease, unspecified; F32.9 Major depressive disorder, single episode, unspecified; F17.200 Nicotine dependence, unspecified, uncomplicated; Z88.2 Allergy status to sulfonamides; Z88.5 Allergy status to narcotic agent; Z88.6 Allergy status to analgesic agent
CPT/HCPCS: 80053; 81003; 83690; 83735; 85025; 85610; 85730; 99281; 99285; G0480; J1630; J1953; J7030; J7050

== ENCOUNTER 2018-02-17 16:48 | Emergency (ER) | payer OTHER ==
[~2018-02-17] VITALS: Ht 177.8 cm; Wt 86.1 kg
[~2018-02-17 16:48] MED LIST changes: +MOTRIN600 MG PO; +ZANTAC150 MG PO
[2018-02-17 17:49] LABS: BASOPHIL (%) 0.9 % (0-1); BASOPHIL COUNT 0.1 K/uL (0-0.1); EOSINOPHIL (%) 1.9 % (0-5); EOSINOPHIL COUNT 0.1 K/uL (0-0.3); HEMATOCRIT 41.4 % (38.0-50.0); HEMOGLOBIN 14.3 G/DL (12.5-16.6); IMMATURE GRANULOCYTE (%) 0.4 % (0.0-0.7); LYMPHOCYTE (%) 28.1 % (15-42); LYMPHOCYTE COUNT 1.5 K/uL (1.0-2.8); MCH 33.6 PG (29.0-34.0); MCHC 34.5 G/DL (30.0-36.0); MCV 97.2 FL (86-99); MONOCYTE (%) 8.7 % (3-12); MONOCYTE COUNT 0.5 K/uL (0-0.8); NEUTROPHIL COUNT 3.2 K/uL (1.8-6.4); PLATELET COUNT 183 K/uL (156-360); RBC DIS.WIDTH-CV 14.5 % (11.8-14.6); RBC DIS.WIDTH-SD 52.3 % (39-53); RED BLOOD COUNT 4.26 M/uL (4.00-5.50); WHITE BLOOD COUNT 5.4 K/uL (4.1-10.2)
[2018-02-17 18:00] LABS: CHLORIDE 103 mEq/L (99-109); POTASSIUM 4.9 mEq/L (3.7-5.4); SODIUM 142 mEq/L (136-147)
[2018-02-17 18:01] LABS: GLUCOSE 103 mg/dL (70-99)
[2018-02-17 18:04] LABS: SERUM ETHYL ALCOHOL < 10 mg/dL
[2018-02-17 18:05] LABS: GFR ESTIMATE (CALCULATED) > 59 mL/min/ (58.99-99999)
[2018-02-17 18:06] LABS: UREA NITROGEN (BUN) 18 mg/dL (9-23)
[2018-02-17 18:28] LABS: AMPHETAMINE NEGATIVE (500 ng/mL); BARBITURATES NEGATIVE (200 ng/mL); BENZODIAZEPINES NEGATIVE (150 ng/mL); BUPRENORPHINE NEGATIVE (10 ng/mL); COCAINE NEGATIVE (150 ng/mL); METHADONE NEGATIVE (200 ng/mL); METHAMPHETAMINE NEGATIVE (500 ng/mL); OPIATES (MORPHINE) NEGATIVE (100 ng/mL); OXYCODONE NEGATIVE (100 ng/mL); PHENCYCLIDINE NEGATIVE (25 ng/mL); PROPOXYPHENE NEGATIVE (300 ng/mL); THC CANNABINOIDS PRESUMPTIVE POSITIVE (50 ng/mL); TRICYCLIC ANTIDEPRESSANTS NEGATIVE (300 ng/mL)
[2018-02-17] MEDS ORDERED: XARELTO20 MG PO (21:40)
[2018-02-17] MEDS ORDERED: ARIPIPRAZOLE20 MG PO (21:43)
[2018-02-17] MEDS ORDERED: LEXAPRO20 MG PO (21:43)
[2018-02-17] MEDS ORDERED: AMITRIPTYLINE H25 MG PO (21:43)
[2018-02-17] MEDS ORDERED: KEPPRA1000 MG PO (21:43)
[2018-02-17 22:09] VITALS: BP 123/88
== END 2018-02-17 22:09 | disposition home or self-care (01) ==
LOC: EME 16:48
PROVIDERS: Emergency Medicine
DX: F60.2 Antisocial personality disorder (principal); I82.491 Acute embolism and thrombosis of other specified deep vein of right lower extremity; Z04.6 Encounter for general psychiatric examination, requested by authority; J44.9 Chronic obstructive pulmonary disease, unspecified; R56.9 Unspecified convulsions; F31.9 Bipolar disorder, unspecified; F32.9 Major depressive disorder, single episode, unspecified; F20.9 Schizophrenia, unspecified; F17.200 Nicotine dependence, unspecified, uncomplicated; Z79.01 Long term (current) use of anticoagulants; Z91.14 Patient's other noncompliance with medication regimen; Z86.718 Personal history of other venous thrombosis and embolism; Z90.49 Acquired absence of other specified parts of digestive tract; Z88.2 Allergy status to sulfonamides; Z88.6 Allergy status to analgesic agent; Z88.5 Allergy status to narcotic agent; Z88.8 Allergy status to other drugs, medicaments and biological substances
CPT/HCPCS: 80048; 84999; 85025; 90837; 93971; 99281; 99284; G0480

== ENCOUNTER 2018-03-02 21:37 | Emergency (ER) | payer OTHER ==
[~2018-03-02] VITALS: Ht 177.8 cm; Wt 87.2 kg
[~2018-03-02 21:37] MED LIST changes: +ARIPIPRAZOLE20 MG PO
[2018-03-02] MEDS ORDERED: ELAVIL25 MG PO (23:59)
[2018-03-02] MEDS ORDERED: XARELTO20 MG PO (23:59)
[2018-03-02] MEDS ORDERED: LEXAPRO20 MG PO (23:59)
[2018-03-02] MEDS ORDERED: CIPRO500 MG PO (23:59)
[2018-03-02] MEDS ORDERED: KEPPRA1000 MG PO (23:59)
[2018-03-03 00:04] LABS: SOURCE URINE
[2018-03-03 00:08] LABS: APPEARANCE CLEAR ((CLEAR)); BILIRUBIN NEGATIVE; BLOOD NEGATIVE; COLOR YELLOW ((YELLOW)); GLUCOSE (STRIP) NEGATIVE; KETONES NEGATIVE; LEUKOCYTES NEGATIVE; NITRITE NEGATIVE; PROTEIN (STRIP) NEGATIVE; SPECIFIC GRAVITY 1.018 (1.000-1.030); UCUL ADDED? NO; UROBILINOGEN 0.2 MG/DL (0.2-1.0)
[2018-03-03 01:46] VITALS: BP 118/81
[2018-03-04 13:55] LABS: CHLAMYDIA TRACHOMATIS NEGATIVE; NEISSERIA GONORRHOEAE NEGATIVE
== END 2018-03-03 01:49 | disposition home or self-care (01) ==
LOC: EME 21:37
PROVIDERS: Physician Assistant
DX: N50.811 Right testicular pain (principal); G89.29 Other chronic pain; M79.604 Pain in right leg; I82.511 Chronic embolism and thrombosis of right femoral vein; I82.541 Chronic embolism and thrombosis of right tibial vein; T45.516A Underdosing of anticoagulants, initial encounter; T43.016A Underdosing of tricyclic antidepressants, initial encounter; T42.6X6A Underdosing of other antiepileptic and sedative-hypnotic drugs, initial encounter; Z91.14 Patient's other noncompliance with medication regimen; F32.9 Major depressive disorder, single episode, unspecified; J44.9 Chronic obstructive pulmonary disease, unspecified; G40.909 Epilepsy, unspecified, not intractable, without status epilepticus; Z88.2 Allergy status to sulfonamides; Z88.6 Allergy status to analgesic agent; F17.200 Nicotine dependence, unspecified, uncomplicated
CPT/HCPCS: 76870; 81003; 87491; 87591; 93971; 99281; 99285

== ENCOUNTER 2018-03-06 10:05 | Emergency (ER) | payer OTHER ==
[~2018-03-06] VITALS: Ht 177.8 cm; Wt 81.3 kg
[~2018-03-06 10:05] MED LIST changes: +CIPRO500 MG PO; +ELAVIL25 MG PO
[2018-03-06 11:14] LABS: HEMATOCRIT 41.7 % (38.0-50.0); HEMOGLOBIN 14.7 G/DL (12.5-16.6); MCH 34.3 PG (29.0-34.0); MCHC 35.3 G/DL (30.0-36.0); MCV 97.4 FL (86-99); PLATELET COUNT 158 K/uL (156-360); RBC DIS.WIDTH-CV 14.6 % (11.8-14.6); RBC DIS.WIDTH-SD 52.1 % (39-53); RED BLOOD COUNT 4.28 M/uL (4.00-5.50); WHITE BLOOD COUNT 4.6 K/uL (4.1-10.2)
[2018-03-06 11:20] LABS: INTER. NORMALIZED RATIO 1.2
[2018-03-06 11:22] LABS: CHLORIDE 105 mEq/L (99-109); POTASSIUM 4.2 mEq/L (3.7-5.4); SODIUM 139 mEq/L (136-147)
[2018-03-06 11:23] LABS: PTT 36.6 SEC (25-37)
[2018-03-06 11:24] LABS: GLUCOSE 108 mg/dL (70-99)
[2018-03-06 11:27] LABS: CREATININE 0.9 mg/dL (0.6-1.3); GFR ESTIMATE (CALCULATED) > 59 mL/min/ (58.99-99999)
[2018-03-06 11:28] LABS: UREA NITROGEN (BUN) 16 mg/dL (9-23)
[2018-03-06 12:18] VITALS: BP 128/62
== END 2018-03-06 12:23 | disposition home or self-care (01) ==
LOC: EME 10:05
PROVIDERS: Emergency Medicine
DX: F19.10 Other psychoactive substance abuse, uncomplicated (principal); Z86.711 Personal history of pulmonary embolism; Z86.718 Personal history of other venous thrombosis and embolism; Z79.01 Long term (current) use of anticoagulants; F17.200 Nicotine dependence, unspecified, uncomplicated
CPT/HCPCS: 80048; 85027; 85610; 85730; 99281; 99284

== ENCOUNTER 2018-03-12 04:43 | Emergency (ER) | payer OTHER ==
[~2018-03-12] VITALS: Ht 177.8 cm; Wt 86.2 kg
[2018-03-12 06:16] LABS: ALBUMIN 3.8 g/dL (3.2-4.8); CHLORIDE 107 mEq/L (99-109); POTASSIUM 4.6 mEq/L (3.7-5.4); SODIUM 141 mEq/L (136-147)
[2018-03-12 06:19] LABS: GLUCOSE 101 mg/dL (70-99); TOTAL PROTEIN 6.8 g/dL (6.4-8.3)
[2018-03-12 06:20] LABS: TOTAL BILIRUBIN 0.8 mg/dL (0.0-1.0)
[2018-03-12 06:21] LABS: SERUM ETHYL ALCOHOL < 10 mg/dL
[2018-03-12 06:22] LABS: ALKALINE PHOSPHATASE 168 IU/L (3-129); CREATININE 0.8 mg/dL (0.6-1.3); GFR ESTIMATE (CALCULATED) > 59 mL/min/ (58.99-99999)
[2018-03-12 06:23] LABS: HEMOGLOBIN 14.5 G/DL (12.5-16.6); MCH 33.9 PG (29.0-34.0); MCHC 34.5 G/DL (30.0-36.0); MCV 98.1 FL (86-99); PLATELET COUNT 165 K/uL (156-360); RBC DIS.WIDTH-SD 54.5 % (39-53); RED BLOOD COUNT 4.28 M/uL (4.00-5.50); UREA NITROGEN (BUN) 13 mg/dL (9-23); WHITE BLOOD COUNT 4.5 K/uL (4.1-10.2)
[2018-03-12 06:24] LABS: AST (GOT) 220 IU/L (2-34)
[2018-03-12 06:25] LABS: ALT (GPT) 267 IU/L (3-49); LIPASE 50 U/L (1.0-51.0)
[2018-03-12 06:26] LABS: CREATINE KINASE 163 IU/L (1-294); TOTAL CK 163 IU/L (1-294)
[2018-03-12 06:32] LABS: CK-MB 5.6 ng/mL (0.0-4.9); CKMB RELATIVE INDEX 3.4 (0.0-3.9)
[2018-03-12 07:43] LABS: APPEARANCE CLEAR ((CLEAR)); BILIRUBIN NEGATIVE; BLOOD NEGATIVE; COLOR YELLOW ((YELLOW)); GLUCOSE (STRIP) NEGATIVE; KETONES NEGATIVE; LEUKOCYTES NEGATIVE; NITRITE NEGATIVE; PROTEIN (STRIP) 30; SPECIFIC GRAVITY 1.017 (1.000-1.030); UCUL ADDED? NO; UROBILINOGEN 0.2 MG/DL (0.2-1.0)
[2018-03-12 08:24] LABS: AMPHETAMINE NEGATIVE (500 ng/mL); BARBITURATES NEGATIVE (200 ng/mL); BENZODIAZEPINES PRESUMPTIVE POSITIVE (150 ng/mL); BUPRENORPHINE NEGATIVE (10 ng/mL); COCAINE NEGATIVE (150 ng/mL); METHADONE NEGATIVE (200 ng/mL); METHAMPHETAMINE NEGATIVE (500 ng/mL); OPIATES (MORPHINE) NEGATIVE (100 ng/mL); OXYCODONE NEGATIVE (100 ng/mL); PHENCYCLIDINE NEGATIVE (25 ng/mL); PROPOXYPHENE NEGATIVE (300 ng/mL); THC CANNABINOIDS NEGATIVE (50 ng/mL); TRICYCLIC ANTIDEPRESSANTS NEGATIVE (300 ng/mL)
[2018-03-12 08:55] LABS: BENZODIAZEPINES, URINE SCREEN Negative (200 ng/mL)
[2018-03-12 13:38] VITALS: BP 129/81
== END 2018-03-12 13:38 | disposition home or self-care (01) ==
LOC: EME 04:43
PROVIDERS: Emergency Medicine
DX: F19.10 Other psychoactive substance abuse, uncomplicated (principal); R74.0 Nonspecific elevation of levels of transaminase and lactic acid dehydrogenase [LDH]; G40.909 Epilepsy, unspecified, not intractable, without status epilepticus; Z86.711 Personal history of pulmonary embolism; Z86.718 Personal history of other venous thrombosis and embolism; Z79.01 Long term (current) use of anticoagulants; Z88.2 Allergy status to sulfonamides; F17.200 Nicotine dependence, unspecified, uncomplicated
CPT/HCPCS: 80053; 81003; 82550; 82553; 83690; 84999; 85027; 93005; 99281; 99285; G0480; J2060; J7030

== ENCOUNTER 2018-03-15 16:29 | Emergency (ER) | payer OTHER ==
[~2018-03-15] VITALS: Ht 177.8 cm; Wt 90.4 kg
[2018-03-15 17:54] LABS: HEMATOCRIT 43.2 % (38.0-50.0); HEMOGLOBIN 14.9 G/DL (12.5-16.6); MCH 34.1 PG (29.0-34.0); MCHC 34.5 G/DL (30.0-36.0); MCV 98.9 FL (86-99); PLATELET COUNT 184 K/uL (156-360); RBC DIS.WIDTH-CV 14.7 % (11.8-14.6); RBC DIS.WIDTH-SD 54.3 % (39-53); RED BLOOD COUNT 4.37 M/uL (4.00-5.50); WHITE BLOOD COUNT 6.8 K/uL (4.1-10.2)
[2018-03-15 18:05] LABS: ALBUMIN 4.2 g/dL (3.2-4.8); CHLORIDE 104 mEq/L (99-109); POTASSIUM 4.4 mEq/L (3.7-5.4); SODIUM 140 mEq/L (136-147)
[2018-03-15 18:07] LABS: GLUCOSE 101 mg/dL (70-99); TOTAL PROTEIN 7.5 g/dL (6.4-8.3)
[2018-03-15 18:11] LABS: ALKALINE PHOSPHATASE 181 IU/L (3-129); CREATININE 0.9 mg/dL (0.6-1.3); GFR ESTIMATE (CALCULATED) > 59 mL/min/ (58.99-99999)
[2018-03-15 18:12] LABS: UREA NITROGEN (BUN) 19 mg/dL (9-23)
[2018-03-15 18:13] LABS: AST (GOT) 148 IU/L (2-34)
[2018-03-15 18:14] LABS: ALT (GPT) 222 IU/L (3-49); LIPASE 53 U/L (1.0-51.0)
[2018-03-15 18:22] LABS: TOTAL BILIRUBIN 0.6 mg/dL (0.0-1.0)
[2018-03-15 21:21] LABS: APPEARANCE CLEAR ((CLEAR)); BILIRUBIN NEGATIVE; BLOOD NEGATIVE; COLOR YELLOW ((YELLOW)); GLUCOSE (STRIP) NEGATIVE; KETONES NEGATIVE; LEUKOCYTES NEGATIVE; NITRITE NEGATIVE; PROTEIN (STRIP) NEGATIVE; SPECIFIC GRAVITY 1.027 (1.000-1.030); UCUL ADDED? NO; UROBILINOGEN 0.2 MG/DL (0.2-1.0)
[2018-03-15] MEDS ORDERED: DOXYCYCLINE HY100 MG PO (21:46)
[2018-03-15 23:06] VITALS: BP 127/81
== END 2018-03-15 23:09 | disposition home or self-care (01) ==
LOC: EME 16:29
PROVIDERS: Physician Assistant
DX: N45.1 Epididymitis (principal); F32.9 Major depressive disorder, single episode, unspecified; J44.9 Chronic obstructive pulmonary disease, unspecified; G40.909 Epilepsy, unspecified, not intractable, without status epilepticus; F17.200 Nicotine dependence, unspecified, uncomplicated; Z88.2 Allergy status to sulfonamides; Z88.6 Allergy status to analgesic agent
CPT/HCPCS: 74177; 76870; 80053; 81003; 82803; 83605; 83690; 85027; 87086; 99281; 99285; J0696; J1885; J7030

== ENCOUNTER 2018-03-27 18:51 | Inpatient (IN) | payer OTHER ==
[~2018-03-27] VITALS: Ht 177.8 cm; Wt 88.6 kg
[2018-03-27 19:14] LABS: BASOPHIL (%) 0.7 % (0-1); EOSINOPHIL (%) 1.1 % (0-5); EOSINOPHIL COUNT 0.1 K/uL (0-0.3); HEMOGLOBIN 14.5 G/DL (12.5-16.6); IMMATURE GRANULOCYTE (%) 0.2 % (0.0-0.7); LYMPHOCYTE (%) 27.2 % (15-42); LYMPHOCYTE COUNT 1.5 K/uL (1.0-2.8); MCH 34.2 PG (29.0-34.0); MCHC 34.5 G/DL (30.0-36.0); MCV 99.1 FL (86-99); MONOCYTE (%) 10.5 % (3-12); MONOCYTE COUNT 0.6 K/uL (0-0.8); NEUTROPHIL (%) 60.3 % (45-76); NEUTROPHIL COUNT 3.2 K/uL (1.8-6.4); PLATELET COUNT 162 K/uL (156-360); RBC DIS.WIDTH-CV 14.7 % (11.8-14.6); RBC DIS.WIDTH-SD 54.4 % (39-53); RED BLOOD COUNT 4.24 M/uL (4.00-5.50); WHITE BLOOD COUNT 5.3 K/uL (4.1-10.2)
[2018-03-27 19:27] LABS: ALBUMIN 4.1 g/dL (3.2-4.8); CHLORIDE 106 mEq/L (99-109); POTASSIUM 4.1 mEq/L (3.7-5.4); SODIUM 141 mEq/L (136-147)
[2018-03-27 19:29] LABS: GLUCOSE 136 mg/dL (70-99); TOTAL PROTEIN 7.1 g/dL (6.4-8.3)
[2018-03-27 19:31] LABS: TOTAL BILIRUBIN 0.6 mg/dL (0.0-1.0)
[2018-03-27 19:32] LABS: SERUM ETHYL ALCOHOL < 10 mg/dL
[2018-03-27 19:33] LABS: ALKALINE PHOSPHATASE 128 IU/L (3-129); CREATININE 1.2 mg/dL (0.6-1.3); GFR ESTIMATE (CALCULATED) > 59 mL/min/ (58.99-99999)
[2018-03-27 19:34] LABS: UREA NITROGEN (BUN) 19 mg/dL (9-23)
[2018-03-27 19:35] LABS: AST (GOT) 210 IU/L (2-34)
[2018-03-27 19:36] LABS: ALT (GPT) 312 IU/L (3-49)
[2018-03-27 19:37] LABS: PTT 31.6 SEC (25-37)
[2018-03-27 20:45] LABS: AMPHETAMINE NEGATIVE (500 ng/mL); BARBITURATES NEGATIVE (200 ng/mL); BENZODIAZEPINES NEGATIVE (150 ng/mL); BUPRENORPHINE NEGATIVE (10 ng/mL); COCAINE PRESUMPTIVE POSITIVE (150 ng/mL); METHADONE NEGATIVE (200 ng/mL); METHAMPHETAMINE NEGATIVE (500 ng/mL); OPIATES (MORPHINE) NEGATIVE (100 ng/mL); OXYCODONE NEGATIVE (100 ng/mL); PHENCYCLIDINE NEGATIVE (25 ng/mL); PROPOXYPHENE NEGATIVE (300 ng/mL); THC CANNABINOIDS PRESUMPTIVE POSITIVE (50 ng/mL); TRICYCLIC ANTIDEPRESSANTS NEGATIVE (300 ng/mL)
[2018-03-27 21:48] VITALS: BP 140/95
[2018-03-28 00:27] VITALS: BP 140/95
[2018-03-28 07:54] VITALS: BP 139/92
[2018-03-28 15:44] VITALS: BP 131/80
[2018-03-29 08:05] VITALS: BP 107/71
[2018-03-29 16:07] VITALS: BP 142/72
[2018-03-30 08:16] VITALS: BP 118/76
[2018-03-30 16:00] VITALS: BP 181/95
[2018-03-31 08:08] VITALS: BP 130/74
[2018-03-31 15:53] VITALS: BP 117/70
[2018-04-01 07:49] VITALS: BP 120/84
[2018-04-01 15:25] VITALS: BP 113/60
[2018-04-02 08:25] VITALS: BP 123/73
[2018-04-02] MEDS ORDERED: XARELTO15 MG PO (08:48)
[2018-04-02] MEDS ORDERED: XARELTO20 MG PO (08:48)
[2018-04-02] MEDS ORDERED: CIPRO500 MG PO (08:48)
[2018-04-02] MEDS ORDERED: DOXYCYCLINE HY100 MG PO (08:49)
[2018-04-02] MEDS ORDERED: ARIPIPRAZOLE10 MG PO (08:58)
== END 2018-04-02 09:07 | disposition other institution (70) | DRG 880 ==
LOC: EME 18:51 → 1WEST 20:58 → EDOF 20:58 → ENRESERV 21:32 → 1WEST 21:47
PROVIDERS: Emergency Medicine
DX: F41.8 Other specified anxiety disorders (principal); F43.23 Adjustment disorder with mixed anxiety and depressed mood; F14.10 Cocaine abuse, uncomplicated; F11.10 Opioid abuse, uncomplicated; F60.2 Antisocial personality disorder; R45.851 Suicidal ideations; Z59.0 Homelessness; Z91.14 Patient's other noncompliance with medication regimen; Z86.718 Personal history of other venous thrombosis and embolism; Z86.711 Personal history of pulmonary embolism; G40.909 Epilepsy, unspecified, not intractable, without status epilepticus; N45.1 Epididymitis; I82.413 Acute embolism and thrombosis of femoral vein, bilateral; I82.433 Acute embolism and thrombosis of popliteal vein, bilateral; I82.441 Acute embolism and thrombosis of right tibial vein; F19.94 Other psychoactive substance use, unspecified with psychoactive substance-induced mood disorder; F17.210 Nicotine dependence, cigarettes, uncomplicated; Z91.19 Patient's noncompliance with other medical treatment and regimen; F10.10 Alcohol abuse, uncomplicated; D68.51 Activated protein C resistance; Z76.5 Malingerer [conscious simulation]
CPT/HCPCS: 70450; 80053; 84999; 85025; 85610; 85730; 90837; 93970; 97150 GO; 97166 GO; 99281; 99284; G0480

== ENCOUNTER 2018-04-27 12:57 | Inpatient (IN) | payer OTHER ==
[~2018-04-27] VITALS: Ht 177.8 cm; Wt 94.7 kg
[2018-04-27 13:17] LABS: HEMATOCRIT 39.7 % (38.0-50.0); HEMOGLOBIN 14.1 G/DL (12.5-16.6); MCH 34.5 PG (29.0-34.0); MCHC 35.5 G/DL (30.0-36.0); MCV 97.1 FL (86-99); PLATELET COUNT 135 K/uL (156-360); RBC DIS.WIDTH-CV 13.4 % (11.8-14.6); RED BLOOD COUNT 4.09 M/uL (4.00-5.50); WHITE BLOOD COUNT 4.4 K/uL (4.1-10.2)
[2018-04-27 13:27] LABS: CHLORIDE 105 mEq/L (99-109); POTASSIUM 4.1 mEq/L (3.7-5.4); SODIUM 140 mEq/L (136-147)
[2018-04-27 13:29] LABS: GLUCOSE 109 mg/dL (70-99)
[2018-04-27 13:33] LABS: CREATININE 0.9 mg/dL (0.6-1.3); GFR ESTIMATE (CALCULATED) > 59 mL/min/ (58.99-99999)
[2018-04-27 13:34] LABS: UREA NITROGEN (BUN) 16 mg/dL (9-23)
[2018-04-27 13:56] LABS: SERUM ETHYL ALCOHOL < 10 mg/dL
[2018-04-27 14:51] LABS: AMPHETAMINE NEGATIVE (500 ng/mL); BARBITURATES NEGATIVE (200 ng/mL); BENZODIAZEPINES NEGATIVE (150 ng/mL); BUPRENORPHINE NEGATIVE (10 ng/mL); COCAINE PRESUMPTIVE POSITIVE (150 ng/mL); METHADONE NEGATIVE (200 ng/mL); METHAMPHETAMINE NEGATIVE (500 ng/mL); OPIATES (MORPHINE) NEGATIVE (100 ng/mL); OXYCODONE NEGATIVE (100 ng/mL); PHENCYCLIDINE NEGATIVE (25 ng/mL); PROPOXYPHENE NEGATIVE (300 ng/mL); THC CANNABINOIDS NEGATIVE (50 ng/mL); TRICYCLIC ANTIDEPRESSANTS NEGATIVE (300 ng/mL)
[2018-04-27 19:13] VITALS: BP 152/97
[2018-04-28 07:50] VITALS: BP 112/62
[2018-04-28 16:04] VITALS: BP 115/59
[2018-04-29 07:44] VITALS: BP 111/59
[2018-04-29 16:11] VITALS: BP 113/69
[2018-04-30 09:30] VITALS: BP 114/75
[2018-04-30 16:35] VITALS: BP 117/72
[2018-05-01 07:51] VITALS: BP 101/60
[2018-05-01 16:08] VITALS: BP 116/65
[2018-05-02 07:22] VITALS: BP 103/61
[2018-05-02 16:44] VITALS: BP 115/65
[2018-05-03 08:23] VITALS: BP 101/63
[2018-05-03 15:30] VITALS: BP 109/69
[2018-05-04 07:49] VITALS: BP 88/52
[2018-05-08] MEDS ORDERED: AMOXICILLIN500 M1 PO (00:39)
== END 2018-05-04 11:37 | disposition home or self-care (01) | DRG 918 ==
LOC: EME 12:57 → EDOF 17:47 → 1WEST 17:47 → ENRESERV 18:41 → 1WEST 18:57
PROVIDERS: Emergency Medicine Emergency Medical Services
DX: T40.4X2A Poisoning by other synthetic narcotics, intentional self-harm, initial encounter (principal); T40.992A Poisoning by other psychodysleptics [hallucinogens], intentional self-harm, initial encounter; R09.89 Other specified symptoms and signs involving the circulatory and respiratory systems; F41.8 Other specified anxiety disorders; F60.2 Antisocial personality disorder; F11.10 Opioid abuse, uncomplicated; F14.10 Cocaine abuse, uncomplicated; F10.10 Alcohol abuse, uncomplicated; F15.10 Other stimulant abuse, uncomplicated; F16.10 Hallucinogen abuse, uncomplicated; F19.14 Other psychoactive substance abuse with psychoactive substance-induced mood disorder; F09 Unspecified mental disorder due to known physiological condition; R41.840 Attention and concentration deficit; F17.200 Nicotine dependence, unspecified, uncomplicated; J44.9 Chronic obstructive pulmonary disease, unspecified; Z91.14 Patient's other noncompliance with medication regimen; Z91.19 Patient's noncompliance with other medical treatment and regimen; Z59.0 Homelessness
CPT/HCPCS: 71046; 80048; 84999; 85027; 90839; 93970; 97150 GO; 97166 GO; 99281; 99285; G0480

== ENCOUNTER 2018-05-07 17:53 | Emergency (ER) | payer OTHER ==
[~2018-05-07] VITALS: Ht 177.8 cm; Wt 93.2 kg
[2018-05-07 18:36] LABS: BASOPHIL (%) 0.3 % (0-1); EOSINOPHIL (%) 0.6 % (0-5); HEMATOCRIT 41.2 % (38.0-50.0); HEMOGLOBIN 14.6 G/DL (12.5-16.6); IMMATURE GRANULOCYTE (%) 0.5 % (0.0-0.7); LYMPHOCYTE (%) 25.8 % (15-42); LYMPHOCYTE COUNT 1.7 K/uL (1.0-2.8); MCH 34.4 PG (29.0-34.0); MCHC 35.4 G/DL (30.0-36.0); MCV 96.9 FL (86-99); MONOCYTE COUNT 0.6 K/uL (0-0.8); NEUTROPHIL (%) 63.8 % (45-76); NEUTROPHIL COUNT 4.1 K/uL (1.8-6.4); PLATELET COUNT 149 K/uL (156-360); RBC DIS.WIDTH-CV 13.4 % (11.8-14.6); RBC DIS.WIDTH-SD 47.8 % (39-53); RED BLOOD COUNT 4.25 M/uL (4.00-5.50); WHITE BLOOD COUNT 6.4 K/uL (4.1-10.2)
[2018-05-07 18:41] LABS: INTER. NORMALIZED RATIO 1.1
[2018-05-07 18:44] LABS: PTT 32.4 SEC (25-37)
[2018-05-07 18:45] LABS: AMYLASE 68 IU/L (1-118); CHLORIDE 105 mEq/L (99-109); POTASSIUM 4.2 mEq/L (3.7-5.4); SODIUM 140 mEq/L (136-147)
[2018-05-07 18:47] LABS: GLUCOSE 121 mg/dL (70-99)
[2018-05-07 18:50] LABS: SERUM ETHYL ALCOHOL < 10 mg/dL
[2018-05-07 18:51] LABS: CREATININE 1.1 mg/dL (0.6-1.3); GFR ESTIMATE (CALCULATED) > 59 mL/min/ (58.99-99999); UREA NITROGEN (BUN) 20 mg/dL (9-23)
[2018-05-07 18:54] LABS: LIPASE 43 U/L (1.0-51.0)
[2018-05-07 19:26] LABS: APPEARANCE CLEAR ((CLEAR)); BILIRUBIN NEGATIVE; BLOOD SMALL; COLOR YELLOW ((YELLOW)); GLUCOSE (STRIP) NEGATIVE; KETONES NEGATIVE; LEUKOCYTES NEGATIVE; NITRITE NEGATIVE; PROTEIN (STRIP) 30; SPECIFIC GRAVITY 1.049 (1.000-1.030); UROBILINOGEN 0.2 MG/DL (0.2-1.0)
[2018-05-07 19:34] LABS: AMPHETAMINE NEGATIVE (500 ng/mL); BARBITURATES NEGATIVE (200 ng/mL); BENZODIAZEPINES NEGATIVE (150 ng/mL); BUPRENORPHINE NEGATIVE (10 ng/mL); COCAINE NEGATIVE (150 ng/mL); METHADONE NEGATIVE (200 ng/mL); METHAMPHETAMINE NEGATIVE (500 ng/mL); OPIATES (MORPHINE) NEGATIVE (100 ng/mL); OXYCODONE NEGATIVE (100 ng/mL); PHENCYCLIDINE NEGATIVE (25 ng/mL); PROPOXYPHENE NEGATIVE (300 ng/mL); THC CANNABINOIDS PRESUMPTIVE POSITIVE (50 ng/mL); TRICYCLIC ANTIDEPRESSANTS NEGATIVE (300 ng/mL)
[2018-05-07 19:42] LABS: BACTERIA 1+ /HPF; EPITHELIAL CELLS RARE /HPF; MUCUS TRACE /LPF; UCUL ADDED? NO; WHITE BLOOD CELLS 0-5 /HPF (0-5)
[2018-05-07 23:18] VITALS: BP 121/82
[2018-05-08] MEDS ORDERED: AMOXICILLIN500 M1 PO (00:39)
== END 2018-05-07 23:42 | disposition home or self-care (01) ==
LOC: TRA → EME → TRA 17:53 → EME 17:53 → EDBD 17:53 → TRA 23:42
PROVIDERS: Emergency Medicine
PROC: 0CQ0XZZ Repair Upper Lip, External Approach (ICD-10-PCS; principal; 2018-05-07)
DX: S06.0X9A Concussion with loss of consciousness of unspecified duration, initial encounter (principal); S01.511A Laceration without foreign body of lip, initial encounter; S02.5XXA Fracture of tooth (traumatic), initial encounter for closed fracture; W18.30XA Fall on same level, unspecified, initial encounter; Y92.480 Sidewalk as the place of occurrence of the external cause; G40.909 Epilepsy, unspecified, not intractable, without status epilepticus; D68.51 Activated protein C resistance; Z79.01 Long term (current) use of anticoagulants; Z59.0 Homelessness
CPT/HCPCS: 70450; 70486; 71045; 71260; 72125; 73560; 74177; 80048; 81003; 82150; 83690; 84999; 85025; 85610; 85730; 86850; 86900; 86901; 93005; 99281; 99285; G0480; J0690; J1953; J3010; J7050

== ENCOUNTER 2018-05-30 17:38 | Emergency (ER) | payer OTHER ==
[~2018-05-30] VITALS: Ht 177.8 cm; Wt 90.9 kg
[~2018-05-30 17:38] MED LIST changes: +AMOXICILLIN500 M1 PO
[2018-05-30 18:16] LABS: BASOPHIL (%) 0.9 % (0-1); BASOPHIL COUNT 0.1 K/uL (0-0.1); EOSINOPHIL (%) 1.1 % (0-5); EOSINOPHIL COUNT 0.1 K/uL (0-0.3); HEMATOCRIT 44.7 % (38.0-50.0); HEMOGLOBIN 16.1 G/DL (12.5-16.6); IMMATURE GRANULOCYTE (%) 0.2 % (0.0-0.7); LYMPHOCYTE (%) 32.7 % (15-42); LYMPHOCYTE COUNT 1.9 K/uL (1.0-2.8); MCH 34.2 PG (29.0-34.0); MCV 94.9 FL (86-99); MONOCYTE COUNT 0.6 K/uL (0-0.8); NEUTROPHIL (%) 54.1 % (45-76); NEUTROPHIL COUNT 3.1 K/uL (1.8-6.4); PLATELET COUNT 191 K/uL (156-360); RBC DIS.WIDTH-CV 12.6 % (11.8-14.6); RBC DIS.WIDTH-SD 43.8 % (39-53); RED BLOOD COUNT 4.71 M/uL (4.00-5.50); WHITE BLOOD COUNT 5.7 K/uL (4.1-10.2)
[2018-05-30 18:25] LABS: CHLORIDE 101 mEq/L (99-109); POTASSIUM 3.9 mEq/L (3.7-5.4); SODIUM 141 mEq/L (136-147)
[2018-05-30 18:27] LABS: GLUCOSE 88 mg/dL (70-99)
[2018-05-30 18:30] LABS: SERUM ETHYL ALCOHOL < 10 mg/dL
[2018-05-30 18:31] LABS: CREATININE 1.5 mg/dL (0.6-1.3); GFR ESTIMATE (CALCULATED) 55 mL/min/ (58.99-99999)
[2018-05-30 18:32] LABS: UREA NITROGEN (BUN) 20 mg/dL (9-23)
[2018-05-31 02:45] VITALS: BP 112/69
== END 2018-05-31 02:46 | disposition home or self-care (01) ==
LOC: EME 17:38
PROVIDERS: Emergency Medicine
DX: F31.4 Bipolar disorder, current episode depressed, severe, without psychotic features (principal); F19.10 Other psychoactive substance abuse, uncomplicated; Z91.14 Patient's other noncompliance with medication regimen; R45.851 Suicidal ideations; R45.850 Homicidal ideations; R05 Cough; R06.02 Shortness of breath; F60.2 Antisocial personality disorder; F17.200 Nicotine dependence, unspecified, uncomplicated
CPT/HCPCS: 71046; 80048; 85025; 85379; 90839; 93005; 94640; 99281; 99285; G0480

== ENCOUNTER 2018-06-25 16:11 | Emergency (ER) | payer OTHER ==
[~2018-06-25] VITALS: Ht 177.8 cm; Wt 90.8 kg
[2018-06-25] MEDS ORDERED: FLEXERIL10 MG PO (16:57)
[2018-06-25 17:14] LABS: HEMATOCRIT 40.3 % (38.0-50.0); HEMOGLOBIN 14.6 G/DL (12.5-16.6); MCH 34.4 PG (29.0-34.0); MCHC 36.2 G/DL (30.0-36.0); PLATELET COUNT 154 K/uL (156-360); RBC DIS.WIDTH-CV 13.7 % (11.8-14.6); RBC DIS.WIDTH-SD 48.3 % (39-53); RED BLOOD COUNT 4.24 M/uL (4.00-5.50); WHITE BLOOD COUNT 7.4 K/uL (4.1-10.2)
[2018-06-25 17:23] LABS: CHLORIDE 102 mEq/L (99-109); POTASSIUM 4.2 mEq/L (3.7-5.4); SODIUM 136 mEq/L (136-147)
[2018-06-25 17:25] LABS: GLUCOSE 146 mg/dL (70-99)
[2018-06-25 17:28] LABS: SERUM ETHYL ALCOHOL < 10 mg/dL
[2018-06-25 17:29] LABS: CREATININE 1.6 mg/dL (0.6-1.3); GFR ESTIMATE (CALCULATED) 51 mL/min/ (58.99-99999)
[2018-06-25 17:31] LABS: UREA NITROGEN (BUN) 25 mg/dL (9-23)
[2018-06-25 17:32] LABS: SALICYLATE < 5.0 MG/DL (15-30)
[2018-06-25 17:33] LABS: ACETAMINOPHEN (TYLENOL) < 10 mcg/mL (10-30)
[2018-06-25 19:33] LABS: AMPHETAMINE NEGATIVE (500 ng/mL); BARBITURATES NEGATIVE (200 ng/mL); BENZODIAZEPINES NEGATIVE (150 ng/mL); BUPRENORPHINE NEGATIVE (10 ng/mL); COCAINE PRESUMPTIVE POSITIVE (150 ng/mL); METHADONE NEGATIVE (200 ng/mL); METHAMPHETAMINE NEGATIVE (500 ng/mL); OPIATES (MORPHINE) NEGATIVE (100 ng/mL); OXYCODONE NEGATIVE (100 ng/mL); PHENCYCLIDINE NEGATIVE (25 ng/mL); PROPOXYPHENE NEGATIVE (300 ng/mL); THC CANNABINOIDS NEGATIVE (50 ng/mL); TRICYCLIC ANTIDEPRESSANTS NEGATIVE (300 ng/mL)
[2018-06-25 21:32] VITALS: BP 115/73
== END 2018-06-25 21:34 | disposition home or self-care (01) ==
LOC: EME 16:11
PROVIDERS: Emergency Medicine
DX: M54.5 Low back pain (principal); N17.9 Acute kidney failure, unspecified; F31.4 Bipolar disorder, current episode depressed, severe, without psychotic features; F60.2 Antisocial personality disorder; F14.99 Cocaine use, unspecified with unspecified cocaine-induced disorder; F11.99 Opioid use, unspecified with unspecified opioid-induced disorder; F10.10 Alcohol abuse, uncomplicated; Z88.2 Allergy status to sulfonamides; Z88.6 Allergy status to analgesic agent; Z88.5 Allergy status to narcotic agent; Z88.8 Allergy status to other drugs, medicaments and biological substances
CPT/HCPCS: 80048; 84999; 85027; 90839; 93005; 99281; 99285; G0480; J1885; J7030

== ENCOUNTER 2018-07-22 13:39 | Emergency (ER) | payer OTHER ==
[~2018-07-22] VITALS: Ht 177.8 cm; Wt 99.0 kg
[2018-07-22] MEDS ORDERED: XARELTO1 EACH PO (17:50)
[2018-07-22] MEDS ORDERED: ROXICODONE5 MG PO (17:50)
[2018-07-22 18:07] VITALS: BP 122/76
== END 2018-07-22 18:11 | disposition home or self-care (01) ==
LOC: EME 13:39
DX: I82.511 Chronic embolism and thrombosis of right femoral vein (principal); I82.541 Chronic embolism and thrombosis of right tibial vein; I82.5Z1 Chronic embolism and thrombosis of unspecified deep veins of right distal lower extremity; N50.82 Scrotal pain; I86.1 Scrotal varices; N50.1 Vascular disorders of male genital organs; Z91.14 Patient's other noncompliance with medication regimen; D68.2 Hereditary deficiency of other clotting factors; Z86.711 Personal history of pulmonary embolism; F17.200 Nicotine dependence, unspecified, uncomplicated; Z88.2 Allergy status to sulfonamides
CPT/HCPCS: 76870; 93971; 99281; 99284